=== PATIENT | male | born 1955 | race Caucasian/White ===

== ENCOUNTER 2016-06-16 01:36 | Inpatient (IN) | payer OTHER, MEDICAID ==
[2016-06-16] MEDS ORDERED: OLANZapine DISINTEGR 10 MG TAB PO ONE (02:06)
[2016-06-16 02:51] LABS: % IMMATURE GRANULYOCYTES 0.1 % (0.0-1.1); ABSOLUTE IMMATURE GRANULOCYTES 0.01 10^3/uL (0.00-0.10); ADD DIFF? NO; ADD MORPH? NO; ADD SCAN? NO; ATYPICAL LYMPHOCYTE FLAG 10 (0-99); FRAGMENT RBC FLAG 0 (0-99); HEMATOCRIT 42.1 % (40.0-51.0); HEMOGLOBIN 14.9 g/dL (13.7-17.5); LEFT SHIFT FLG 0 (0-99); LIPEMIA HEMOLYSIS FLAG 90 (0-99); MEAN CELL HEMOGLOBIN 32.7 pg (27.9-34.1); MEAN CELL HEMOGLOBIN CONCENTR. 35.4 g/dL (32.4-36.7); MEAN CELL VOLUME 92.5 fL (81.5-99.8); MEAN PLATELET VOLUME 9.5 fL (8.7-11.7); PLATELET CLUMPS FLAG 0 (0-99); PLATELET COUNT 190 10^3/uL (150-400); RED BLOOD CELL COUNT 4.55 10^6/uL (4.40-6.38); RED CELL DISTRIBUTION WIDTH 12.4 % (11.5-15.2)
[2016-06-16 03:29] LABS: ALANINE AMINOTRANSFERASE 29 IU/L (21-72); ALKALINE PHOSPHATASE 85 IU/L (38-126); ANION GAP 10 mEq/L (8-16); ASPARTATE AMINOTRANSFERASE 15 IU/L (17-59); BILIRUBIN,TOTAL 0.8 mg/dL (0.1-1.4); CALCIUM 9.3 mg/dL (8.5-10.4); CARBON DIOXIDE 26 mEq/l (22-31); CHLORIDE 108 mEq/L (97-110); CREATININE 0.7 mg/dL (0.7-1.3); ETHANOL SERUM < 10 mg/dL (0-10); GLOMERULAR FILTRATION RATE > 60; GLUCOSE 100 mg/dL (70-100); POTASSIUM 3.5 mEq/L (3.5-5.2); SODIUM 144 mEq/L (134-144); TOTAL PROTEIN 6.6 g/dL (6.3-8.2)
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
[2016-06-16] MEDS ORDERED: clonazePAM 1 MG TAB PO ONE (09:49)
[2016-06-16] MEDS ORDERED: ACETAMINOPHEN 325 MG TAB PO PRN ×2 (10:46→12:30)
[2016-06-16] MEDS ORDERED: NICOTINE POLACRILEX 2 MG GUM B PRN ×2 (10:46→12:30)
[2016-06-16] MEDS ORDERED: MAG HYDROX/AL HYDROX/SIMETH 30 ML UDCUP PO PRN ×2 (10:46→12:30)
[2016-06-16] MEDS ORDERED: MAGNESIUM HYDROXIDE 30 ML UDCUP PO PRN ×2 (10:46→12:30)
[2016-06-16] MEDS ORDERED: LORazepam 0.5 MG TAB PO PRN (10:46)
[2016-06-16] MEDS ORDERED: OLANZapine DISINTEGR 10 MG TAB PO PRN (10:46)
[2016-06-16] MEDS ORDERED: IBUPROFEN 600 MG TAB PO PRN (16:37)
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
[2016-06-16] MEDS ORDERED: OLANZapine 2.5 MG TAB PO SCH (21:00)
[2016-06-16] MEDS: DIVALPROEX ER 500 MG TAB PO SCH (21:47)
[2016-06-16] MEDS: OLANZapine DISINTEGR 10 MG TAB PO SCH (21:47)
[2016-06-17] MEDS ORDERED: ELETRIPTAN HBR 40 MG PO PRN (11:35)
--- NOTE | 2016-06-17 11:43 | SOAPPROG ---
SOAP Progress Note Assessment/Plan: Assessment: Pt is a 61 y/o Homeless male who has a long hx of Bipolar D/O who was put on an M1 for stating he was suicidal and homicidal. He then recanted being homicidal but stated he was suicidal "with a plan to hang myself like Matthew Toure." Pt was uncooperative with the initial eval by Dr Luis E joaquin 06/16/16 the day he came in and is requesting his "pain meds" although he cannot state who prescribes them. In the past when he was here in 2011 required days in seclusion and was D/C'd on Depakote 2500mm DAILY and Zyprexa 20 mg daily. The nurses reports he is refusing his psych meds but he states they were not offered. He told the wound care rn he is here "because it is cold outside." Plan:off meds x 2 weeks-now refusing-will encourage pt to take Depakote and Zyprexa pt will not give details on who is RXing his pain meds so will not order He will be encouraged to get out of bed and go to groups but now he is just lying in bed and being uncooperative 06/17/16 11:38 Subjective: "I need my pain meds!" Objective: Vital Signs Temp Pulse Resp BP Pulse Ox 36.4 C 76 18 129/89 H 96 06/16/16 13:22 06/16/16 13:22 06/16/16 10:00 06/16/16 13:22 06/16/16 13:22 Pt is A+O x4 angry at being woken up "I've already given all this information before" mood-irritable affect-broad thoughts-focused on pain meds no delusions expressed does not appear to be responding to internal stimuli reports SI "because it's cold outside" speech-loud and pressured memory-seems intact + med seeking for opiates no HI conc-poor I/J-limited - Time Spent With Patient Time Spent With Patient: 20' - Pending Discharge Pending Discharge Within 24 Hours: No Pending Discharge Within 48 Hours: No ICD10 Worksheet Patient Problems: Problems Problem Status Diagnosed Bipolar disorder Acute Rotator Cuff Repair Active
[2016-06-17] MEDS ORDERED: SUMAtriptan 50 MG TAB PO PRN (11:47)
[2016-06-17] MEDS: DIVALPROEX ER 500 MG TAB PO SCH (20:41)
[2016-06-17] MEDS: OLANZapine DISINTEGR 10 MG TAB PO SCH (20:42)
--- NOTE | 2016-06-18 11:55 | SOAPPROG ---
SOAP Progress Note Assessment/Plan: Assessment: Pt is a 61 y/o Homeless male who has a long hx of Bipolar D/O who was put on an M1 for stating he was suicidal and homicidal. He then recanted being homicidal but stated he was suicidal "with a plan to hang myself like Matthew Toure." Pt was uncooperative with the initial eval by Dr Luis E joaquin 06/16/16 the day he came in and is requesting his "pain meds" although he cannot state who prescribes them. In the past when he was here in 2011 required days in seclusion and was D/C'd on Depakote 2500mm DAILY and Zyprexa 20 mg daily. The nurses reports he is refusing his psych meds but he states they were not offered. He told the caretaker grounds he is here "because it is cold outside." Plan:off meds x 2 weeks-now refusing-will encourage pt to take Depakote and Zyprexa pt will not give details on who is RXing his pain meds so will not order Agrees to sign in vol will write order for pt to shave and take a bath he denies current SI 06/18/16 11:51 Subjective: "I came in here voluntarily. I want to take a bath and shave." Objective: Vital Signs Temp Pulse Resp BP Pulse Ox 36.4 C 76 18 129/89 H 96 06/16/16 13:22 06/16/16 13:22 06/16/16 10:00 06/16/16 13:22 06/16/16 13:22 Pt is A+O mood-irritable affect-broad denies S/H I denies A/V H thoughts-sarcastic, angry tone speech-pressured slept 8.5 hours good appetite and out of bed today conc-/memory-fair no XAVI no delusions I/J-limited - Time Spent With Patient Time Spent With Patient: 20' - Pending Discharge Pending Discharge Within 24 Hours: No Pending Discharge Within 48 Hours: No ICD10 Worksheet Patient Problems: Problems Problem Status Diagnosed Bipolar disorder Acute Rotator Cuff Repair Active
[2016-06-18] MEDS: DIVALPROEX ER 500 MG TAB PO SCH (16:40)
[2016-06-18] MEDS: LORazepam 0.5 MG TAB PO PRN (16:41)
[2016-06-18] MEDS: OLANZapine DISINTEGR 10 MG TAB PO SCH (16:41)
--- NOTE | 2016-06-18 17:55 | WOCRNPDOC ---
WOCRN Advanced Assessment Note - Skin Integrity Problem, Advanced Assess Right Lower Lateral Leg Surgical Wound/Incision Dressing Type: Allevyn Life Exudate Amount: None Site Measurement - Head-to-Toe Length X Width X Depth (cm): 3x1x0 Skin Integrity Problem Comment: Wound fully epithelized. No surrounding erythema , nor sign of infection. Area is tender but per patient report pain is decreasing. Cover for protection. Please reconsult wound care prn but at this time wound care doesn't need to round. May D/C dressing in 5 days and cover with bandaid prn. Felix HEWITT in room for care.
[2016-06-19] MEDS: VALPROIC ACID 250 MG/5 ML UDCUP PO SCH ×2 (11:14→21:59)
--- NOTE | 2016-06-19 11:30 | SOAPPROG ---
SOAP Progress Note Assessment/Plan: Assessment: Pt is a 61 y/o Homeless male who has a long hx of Bipolar D/O who was put on an M1 for stating he was suicidal and homicidal. He then recanted being homicidal but stated he was suicidal "with a plan to hang myself like Matthew Toure." Pt was uncooperative with the initial eval by Dr Luis E joaquin 06/16/16 the day he came in and is requesting his "pain meds" although he cannot state who prescribes them. In the past when he was here in 2011 required days in seclusion and was D/C'd on Depakote 2500mm DAILY and Zyprexa 20 mg daily. The nurses reports he is refusing his psych meds but he states they were not offered. He told the home health care worker he is here "because it is cold outside." Plan:off meds x 2 weeks-now taking Depakote and Zyprexa-requests syrup Depakote- pharmacist will order pt will not give details on who is RXing his pain meds so will not order Pt is vol pt has shave order and an order that he can take a bath as he denies current SI pt seen by wound care for leg wound 06/18/16 06/19/16 11:30 Subjective: requests flavored Depakote syrup Objective: Vital Signs Temp Pulse Resp BP Pulse Ox 36.3 C 92 14 114/88 H 98 06/19/16 06:00 06/19/16 06:00 06/19/16 06:00 06/19/16 06:00 06/19/16 06:00 Pt is A+O x4 mood-anxious affect-broad denies A/V H recent S/H I but denies now speech-pressured, loud thoughts-logical slept 12 hours conc/memory-impaired no XAVI no formal delusions I/J-limited but now accepting meds - Time Spent With Patient Time Spent With Patient: 20' - Pending Discharge Pending Discharge Within 24 Hours: No Pending Discharge Within 48 Hours: No ICD10 Worksheet Patient Problems: Problems Problem Status Diagnosed Bipolar disorder Acute Rotator Cuff Repair Active
[2016-06-19] MEDS: OLANZapine DISINTEGR 10 MG TAB PO SCH (21:58)
[2016-06-20] MEDS: VALPROIC ACID 250 MG/5 ML UDCUP PO SCH ×3 (08:17→20:42)
[2016-06-20] MEDS: clonazePAM 1 MG TAB PO PRN ×2 (08:17→16:23)
[2016-06-20] MEDS: OLANZapine DISINTEGR 10 MG TAB PO PRN (08:17)
--- NOTE | 2016-06-20 11:51 | SOAPPROG ---
SOAP Progress Note Assessment/Plan: Assessment: Pt is a 61 y/o Homeless male who has a long hx of Bipolar D/O who was put on an M1 for stating he was suicidal and homicidal. He then recanted being homicidal but stated he was suicidal "with a plan to hang myself like Matthew Mesfin." Pt was uncooperative with the initial eval by Dr Luis E joaquin 06/16/16 the day he came in and is requesting his "pain meds" although he cannot state who prescribes them. In the past when he was here in 2011 required days in seclusion and was D/C'd on Depakote 2500mm DAILY and Zyprexa 20 mg daily. The nurses reports he is refusing his psych meds but he states they were not offered. He told the day care teacher he is here "because it is cold outside." 06/20/16-pt gives long hx of Bipolar D/O and 10 years ago in a manic episode went into someone's house and took shampoo and was chased by police and charge with 3 felonies-now his neighbor had him arrested twice and a current charge in pending for felony menacing which is causing pt to have much difficulty in finding a place live due to his past and current legal problems-he just completed a course of chemo for Hep C for 6 months but has cirrhosis. Pt is concerned about taking Depakote but due to his hx of brittle nimco suggest no med changes at this time Plan:off meds x 2 weeks-now taking Depakote and Zyprexa-requests syrup Depakote- pharmacist will order Pt is vol pt has shave order and an order that he can take a bath as he denies current SI pt seen by wound care for leg wound 06/18/16 06/20/16 11:47 Subjective: pt anxious about housing and legal situation Objective: Vital Signs Temp Pulse Resp BP Pulse Ox 36.4 C 107 H 14 128/95 H 97 06/20/16 06:00 06/20/16 06:00 06/20/16 06:00 06/20/16 06:00 06/20/16 06:00 Pt is A+O x 4 mood-anxious affect-appr no S/H I thoughts-logical speech-sl pressured sleep/appetite-wnl no delusions no A/V H memory-intact conc-wnl no XAVI I/J-fair - Time Spent With Patient Time Spent With Patient: 25' - Pending Discharge Pending Discharge Within 24 Hours: No Pending Discharge Within 48 Hours: No ICD10 Worksheet Patient Problems: Problems Problem Status Diagnosed Bipolar disorder Acute Rotator Cuff Repair Active
[2016-06-20] MEDS: OLANZapine DISINTEGR 10 MG TAB PO SCH (20:42)
[2016-06-20] MEDS: LORazepam 0.5 MG TAB PO PRN (20:45)
[2016-06-21] MEDS: clonazePAM 1 MG TAB PO PRN ×2 (07:59→23:11)
[2016-06-21] MEDS: VALPROIC ACID 250 MG/5 ML UDCUP PO SCH ×3 (07:59→23:08)
--- NOTE | 2016-06-21 11:40 | SOAPPROG ---
SOAP Progress Note Assessment/Plan: Assessment: Pt is a 61 y/o Homeless male who has a long hx of Bipolar D/O who was put on an M1 for stating he was suicidal and homicidal. He then recanted being homicidal but stated he was suicidal "with a plan to hang myself like Matthew Touer." Pt was uncooperative with the initial eval by Dr Luis E joaquin 06/16/16 the day he came in and is requesting his "pain meds" although he cannot state who prescribes them. In the past when he was here in 2011 required days in seclusion and was D/C'd on Depakote 2500mm DAILY and Zyprexa 20 mg daily. The nurses reports he is refusing his psych meds but he states they were not offered. He told the early breastfeeding care specialist he is here "because it is cold outside." 06/20/16-pt gives long hx of Bipolar D/O and 10 years ago in a manic episode went into someone's house and took shampoo and was chased by police and charge with 3 felonies-now his neighbor had him arrested twice and a current charge in pending for felony menacing which is causing pt to have much difficulty in finding a place live due to his past and current legal problems-he just completed a course of chemo for Hep C for 6 months but has cirrhosis. Pt is concerned about taking Depakote but due to his hx of brittle nimco suggest no med changes at this time Plan:off meds x 2 weeks-now taking Depakote and Zyprexa-requests syrup Depakote- pharmacist will order Pt is vol pt has shave order and an order that he can take a bath as he denies current SI pt seen by wound care for leg wound 06/18/16 will check Depakote level and LFT's -pt with hx of Hep C with cirrhosis 06/21/16 11:39 Subjective: Still concerned about lack of housing on D/C Objective: Vital Signs Temp Pulse Resp BP Pulse Ox 36.8 C 77 14 124/88 H 98 06/21/16 06:00 06/21/16 06:00 06/21/16 06:00 06/21/16 06:00 06/21/16 06:00 Pt is A+O x4 mood-anxious affect-appr denies S/H I thoughts-logical sleep/appetite-wnl no A/V H no formal delusions thoughts-focused on neighbors, legal issues and housing speech-sl pressured conc-fair memory-intact no XAVI I/J-fair - Time Spent With Patient Time Spent With Patient: 20' - Pending Discharge Pending Discharge Within 24 Hours: No Pending Discharge Within 48 Hours: No ICD10 Worksheet Patient Problems: Problems Problem Status Diagnosed Bipolar disorder Acute Rotator Cuff Repair Active
[2016-06-21] MEDS: OLANZapine DISINTEGR 10 MG TAB PO SCH ×2 (21:27→23:08)
[2016-06-22] MEDS: clonazePAM 1 MG TAB PO PRN ×3 (05:35→23:44)
[2016-06-22] MEDS: VALPROIC ACID 250 MG/5 ML UDCUP PO SCH ×2 (10:49→20:30)
--- NOTE | 2016-06-22 10:51 | SOAPPROG ---
SOAP Progress Note Assessment/Plan: Assessment: Pt is a 61 y/o Homeless male who has a long hx of Bipolar D/O who was put on an M1 for stating he was suicidal and homicidal. He then recanted being homicidal but stated he was suicidal "with a plan to hang myself like Matthew Toure." Pt was uncooperative with the initial eval by Dr Luis E joaquin 06/16/16 the day he came in and is requesting his "pain meds" although he cannot state who prescribes them. In the past when he was here in 2011 required days in seclusion and was D/C'd on Depakote 2500mm DAILY and Zyprexa 20 mg daily. The nurses reports he is refusing his psych meds but he states they were not offered. He told the geriatric care manager he is here "because it is cold outside." 06/20/16-pt gives long hx of Bipolar D/O and 10 years ago in a manic episode went into someone's house and took shampoo and was chased by police and charge with 3 felonies-now his neighbor had him arrested twice and a current charge in pending for felony menacing which is causing pt to have much difficulty in finding a place live due to his past and current legal problems-he just completed a course of chemo for Hep C for 6 months but has cirrhosis. Pt is concerned about taking Depakote but due to his hx of brittle nimco suggest no med changes at this time 06/22/16-pt will refused Depakote only to take it later-has been denied housing in every place he's called and/or applied due to "rap sheet" and felonies. 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 taking Depakote and Zyprexa-likes the Depakote Syrup Pt is vol pt has shave order and an order that he can take a bath as he denies current SI pt seen by wound care for leg wound 06/18/16 will check Depakote level and LFT's 06/25/16-pt with hx of Hep C with cirrhosis 06/22/16 10:48 Subjective: Pt tearful and anxious about not being able to find a place to live new legal charges Objective: Vital Signs Temp Pulse Resp BP Pulse Ox 36.7 C 75 16 144/91 H 98 06/22/16 06:19 06/22/16 06:19 06/22/16 06:19 06/22/16 06:19 06/22/16 06:19 Pt is A+O x4 mood-depressed affect-appr thoughts-logical sleep/appetite-wnl no A/V H no S/H I but recent SI and HI speech-sl pressured no delusions memory/conc-good no XAVI I/J-fair - Time Spent With Patient Time Spent With Patient: 20' - Pending Discharge Pending Discharge Within 24 Hours: No Pending Discharge Within 48 Hours: No ICD10 Worksheet Patient Problems: Problems Problem Status Diagnosed Bipolar disorder Acute Rotator Cuff Repair Active
[2016-06-22] MEDS: OLANZapine DISINTEGR 10 MG TAB PO SCH (20:30)
[2016-06-22] MEDS: LORazepam 0.5 MG TAB PO PRN (20:35)
[2016-06-22] MEDS: OLANZapine DISINTEGR 10 MG TAB PO PRN (23:44)
[2016-06-23] MEDS: VALPROIC ACID 250 MG/5 ML UDCUP PO SCH ×2 (09:28→21:01)
--- NOTE | 2016-06-23 10:40 | SOAPPROG ---
SOAP Progress Note Assessment/Plan: Assessment: Pt is a 61 y/o Homeless male who has a long hx of Bipolar D/O who was put on an M1 for stating he was suicidal and homicidal. He then recanted being homicidal but stated he was suicidal "with a plan to hang myself like Matthew Toure." Pt was uncooperative with the initial eval by Dr Luis E joaquin 06/16/16 the day he came in and is requesting his "pain meds" although he cannot state who prescribes them. In the past when he was here in 2011 required days in seclusion and was D/C'd on Depakote 2500mm DAILY and Zyprexa 20 mg daily. The nurses reports he is refusing his psych meds but he states they were not offered. He told the client care consultant he is here "because it is cold outside." 06/20/16-pt gives long hx of Bipolar D/O and 10 years ago in a manic episode went into someone's house and took shampoo and was chased by police and charge with 3 felonies-now his neighbor had him arrested twice and a current charge in pending for felony menacing which is causing pt to have much difficulty in finding a place live due to his past and current legal problems-he just completed a course of chemo for Hep C for 6 months but has cirrhosis. Pt is concerned about taking Depakote but due to his hx of brittle nimco suggest no med changes at this time 06/22/16-pt will refused Depakote only to take it later-has been denied housing in every place he's called and/or applied due to "rap sheet" and felonies. 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-likes the Depakote Syrup Pt is vol pt has shave order and an order that he can take a bath as he denies current SI pt seen by wound care for leg wound 06/18/16 will check Depakote level and LFT's 06/25/16-pt with hx of Hep C with cirrhosis pt asking to leave-is vol but is threatening to kill neighbors will put pt on an M1 06/23/16 10:37 Subjective: "I want to go home!" Objective: Vital Signs Temp Pulse Resp BP Pulse Ox 36.4 C 84 16 137/90 H 99 06/23/16 06:28 06/23/16 06:28 06/23/16 06:28 06/23/16 06:28 06/23/16 06:28 Pt is A+O X4 laying in room with blanket covering his head mood-angry/labile affect-broad thoughts-focusing on leaving -angry at neighbors and was heard on phone threatening to kill them +HI no A/V H speech-loud, pressured sleep/appetite-wnl memory-intact conc-poor no XAVI no SI I/J-limited - Time Spent With Patient Time Spent With Patient: 20' - Pending Discharge Pending Discharge Within 24 Hours: No Pending Discharge Within 48 Hours: No ICD10 Worksheet Patient Problems: Problems Problem Status Diagnosed Bipolar disorder Acute Rotator Cuff Repair Active
[2016-06-23] MEDS: clonazePAM 1 MG TAB PO PRN (14:16)
[2016-06-23] MEDS: OLANZapine DISINTEGR 10 MG TAB PO SCH (21:01)
[2016-06-24] MEDS: VALPROIC ACID 250 MG/5 ML UDCUP PO SCH ×3 (02:51→18:31)
[2016-06-24] MEDS: OLANZapine DISINTEGR 10 MG TAB PO SCH ×2 (02:51→21:21)
[2016-06-24] MEDS: clonazePAM 1 MG TAB PO PRN ×2 (02:52→14:20)
[2016-06-25] MEDS: clonazePAM 1 MG TAB PO PRN ×2 (04:12→10:38)
[2016-06-25 09:58] LABS: ALANINE AMINOTRANSFERASE 24 IU/L (21-72); ALBUMIN 3.9 g/dL (3.5-5.0); ALKALINE PHOSPHATASE 86 IU/L (38-126); ASPARTATE AMINOTRANSFERASE 18 IU/L (17-59); BILIRUBIN,TOTAL 0.6 mg/dL (0.1-1.4); BILIRUBIN-CONJUGATED 0.3 mg/dL (0.0-0.5); BILIRUBIN-UNCONJUGATED 0.3 mg/dL (0.0-1.1); TOTAL PROTEIN 6.6 g/dL (6.3-8.2)
[2016-06-25] MEDS: VALPROIC ACID 250 MG/5 ML UDCUP PO SCH ×2 (10:38→23:10)
--- NOTE | 2016-06-25 12:33 | SOAPPROG ---
SOAP Progress Note Assessment/Plan: Assessment: Plan: 06/25/16 12:34 Still quite psychotic. Made threats of homicide yesterday. Will maintain M-1, CCM. Likely titrate VPA after level tomorrow. Subjective: LATE ENTRY FOR 06/24/16 Pt seen, discussed with staff, chart reviewed. He is not interested in speaking with me "because it's the [facility] psychiatrists who placed me on this long -term certification yesterday." I attempted to explain to him that he is only on an M-1 hold. He remains agitated, paranoid, angry at times. Compliant with meds. Objective: Vital Signs Temp Pulse Resp BP Pulse Ox 36.7 C 87 14 138/93 H 95 06/25/16 06:03 06/25/16 06:03 06/25/16 06:03 06/25/16 06:03 06/25/16 06:03 MSE: Hostile, agitated. Mood is "bad." TP perseverative, tangential. TC reveals paranoia, IOR's. - Time Spent With Patient Time Spent With Patient: 15" - Pending Discharge Pending Discharge Within 24 Hours: No Pending Discharge Within 48 Hours: No ICD10 Worksheet Patient Problems: Problems Problem Status Diagnosed Bipolar disorder Acute Rotator Cuff Repair Active
--- NOTE | 2016-06-25 12:38 | SOAPPROG ---
SOAP Progress Note Assessment/Plan: Assessment: Plan: 06/25/16 12:34 Still quite psychotic. Made threats of homicide yesterday. Will maintain M-1, CCM. Likely titrate VPA after level tomorrow. 06/25/16 12:38 No interval change. CCM. Will titrate VPA towards a therapeutic dose. Subjective: Pt seen, discussed with staff. Remains disinterested in talking with me. Offers no c/o's. Compliant with meds, though it is unclear whether he will take a higher dose of VPA. Objective: Vital Signs Temp Pulse Resp BP Pulse Ox 36.7 C 87 14 138/93 H 95 06/25/16 06:03 06/25/16 06:03 06/25/16 06:03 06/25/16 06:03 06/25/16 06:03 - Time Spent With Patient Time Spent With Patient: 15" - Pending Discharge Pending Discharge Within 24 Hours: No Pending Discharge Within 48 Hours: No ICD10 Worksheet Patient Problems: Problems Problem Status Diagnosed Bipolar disorder Acute Rotator Cuff Repair Active
[2016-06-25] MEDS: SUMAtriptan 25 MG TAB PO PRN (16:06)
[2016-06-25] MEDS: OLANZapine DISINTEGR 10 MG TAB PO SCH (23:09)
[2016-06-26] MEDS: clonazePAM 1 MG TAB PO PRN ×3 (00:03→16:05)
[2016-06-26] MEDS: VALPROIC ACID 250 MG/5 ML UDCUP PO SCH ×3 (00:05→20:28)
--- NOTE | 2016-06-26 11:20 | SOAPPROG ---
SOAP Progress Note Assessment/Plan: Assessment: Patient with bipolar disorder type I with improved mood on Depakote and Zyprexa. He denies SI/HI. He was irritable with some staff this AM, but he blames it on learning he was about to lose all his things or have to pay for them to be moved. He seems to have continued mood instability; although, he was relatively calm and apologetic during our interaction. He appears to have a plan for his post hospital stay. Plan: Will continue medications and treatment. Patient to sign in as a voluntary patient. Will continue to monitor mood due to some residual irritability. Continue discharge planning. 06/26/16 11:16 06/26/16 11:32 Subjective: He denies SI/HI at this time. He reports he was told by his treatment providers to lie if he felt he needed hospitalization, so he did. He reports he got upset with a women about 30 minutes before this script writer appeared because the woman made him angry. He denies any knowledge of being irritated with the healthcare network consultant this AM. He points to his recent six month course of chemotherapy as proof that he wants to live. He reports a continued fear of returning to his apartment and of being kept here for months. He plans to stay away from his current apartment, but he does have to get rid of his furniture. He has enlisted the help of friends to complete this task. He has plans to stay with friends for a short period if he can't get into a new section 8 apartment in the near term. He has asked for a 60 day extension to find housing. He also asked for a continuation on his court case. Objective: Vital Signs Temp Pulse Resp BP Pulse Ox 36.2 C 90 16 141/100 H 96 06/25/16 23:58 06/25/16 23:58 06/25/16 23:58 06/25/16 23:58 06/25/16 23:58 male of average build and above average height, sitting on the bed. Relaxed, good eye contact. Booming voice. Mood- "Afraid." Affect- Initially irritated, but quickly calmed down. Thought Process- linear and goal directed. He did contradict himself on a few occasions. Thought Content- No SI/HI. No AH/ VH. Insight - good. Judgment- Fair. - Time Spent With Patient Time Spent With Patient: 30 minutes - Pending Discharge Pending Discharge Within 24 Hours: Yes Pending Discharge Within 48 Hours: No Pending Discharge Date: 06/27/16 Pending Discharge Time: 11:00 ICD10 Worksheet Patient Problems: Problems Problem Status Diagnosed Bipolar disorder Acute Rotator Cuff Repair Active
[2016-06-26] MEDS: SUMAtriptan 25 MG TAB PO PRN (14:32)
[2016-06-26] MEDS: LORazepam 0.5 MG TAB PO PRN (20:34)
[2016-06-26] MEDS: OLANZapine DISINTEGR 10 MG TAB PO SCH (21:16)
[2016-06-27 05:15] VITALS: BP 141/87; PULSE 98; RESP 14; TEMP 97.3; O2SAT 99
[2016-06-27] MEDS: clonazePAM 1 MG TAB PO PRN (06:49)
[2016-06-27] MEDS: VALPROIC ACID 250 MG/5 ML UDCUP PO SCH (10:30)
== END 2016-06-27 11:50 | disposition home or self-care (01) | DRG 885 ==
LOC: BBEH 12:15
PROVIDERS: ADMIT Psychiatry & Neurology Psychiatry; ATTEND Psychiatry & Neurology Psychiatry
DX: F31.62 Bipolar disorder, current episode mixed, moderate (principal); F12.90 Cannabis use, unspecified, uncomplicated; Z59.0 Homelessness; G89.29 Other chronic pain; Z87.442 Personal history of urinary calculi
CPT/HCPCS: G0477; G0480

== ENCOUNTER 2016-08-26 16:24 | Emergency (ER) | payer OTHER, MEDICAID | END 2016-08-26 16:39 | disposition left against medical advice (07) | LOC: CED 16:24 | DX: K04.7 Periapical abscess without sinus (principal); Z53.21 Procedure and treatment not carried out due to patient leaving prior to being seen by health care provider ==

== ENCOUNTER 2017-06-23 23:48 | Emergency (ER) | payer OTHER, MEDICAID ==
[2017-06-23 23:54] VITALS: TEMP 98.4; O2SAT 95
--- NOTE | 2017-06-24 00:11 | EDPHY ---
H & P Time Seen by Provider: 06/24/17 00:00 HPI/ROS: CHIEF COMPLAINT: Right foot injury HISTORY OF PRESENT ILLNESS: 62-year-old male presents to the emergency department by private vehicle with injury to his right foot. The patient states that he was moving out of his apartment and slipped on some ice on some stairs and fell injuring his right foot. He thinks that he may have hit his head. He did not lose consciousness. He denies a headache. Denies neck or back pain. Denies chest pain or difficulty breathing. Denies numbness or tingling in his toes. Denies injury to his upper extremities. Denies pain in his right ankle, right knee or hip. Denies symptoms in the left lower extremity. REVIEW OF SYSTEMS: Constitutional: No fever, no chills. Eyes: No double or blurry vision. ENT: No sore throat. Respiratory: No cough, no shortness of breath. Cardiac: No chest pain. Gastrointestinal: No abdominal pain, vomiting or diarrhea. Genitourinary: No dysuria. Musculoskeletal: No neck or back pain. Skin: No rashes. Neurological: No headache. Past Medical/Surgical History: Bipolar, kidney stones Social History: Single, lives in [place] Smoking Status: Never smoked Physical Exam: General Appearance: Alert, no distress. No visible signs of trauma to his head. Mentating normally and answering questions appropriately. Eyes: Pupils equal and round. Extraocular motions are all intact. ENT: Mouth: Mucous membranes moist. No dental injury or malocclusion. Respiratory: No wheezing, rhonchi, or rales, lungs are clear to auscultation. Cardiovascular: Regular rate and rhythm. Gastrointestinal: Abdomen is soft and nontender, no masses, no rebound or guarding, bowel sounds normal. Neurological: Alert and oriented x 3, cranial nerves II through XII grossly intact Skin: Warm and dry, no rashes. Musculoskeletal: Nontender to palpate along the cervical, thoracic or lumbar spine. Neck is supple. Extremities: Full range of motion and no peripheral edema. Reproducible pain with palpation to the dorsal lateral aspect of his right foot. Nontender to palpate over the right ankle. Right ankle appears stable. Nontender to palpate in the right calf. Achilles tendon is intact. Full range of motion of his right knee. He has an antalgic gait. Full range of motion of the left lower extremity and upper extremities bilaterally. Psychiatric: Patient is oriented X 3, there is no agitation. Constitutional: Initial Vital Signs Temperature (C) 36.9 C 06/23/17 23:50 Heart Rate 97 06/23/17 23:50 Respiratory Rate 16 06/23/17 23:50 Blood Pressure 136/106 H 06/23/17 23:50 O2 Sat (%) 95 06/23/17 23:50 O2 Delivery Mode Room Air Allergies/Adverse Reactions: No Known Allergies Allergy (Verified 06/16/16 01:40) Home Medications: Medication Instructions Recorded Eletriptan HBr [Relpax] 40 mg PO DAILY PRN #30 tablet 06/27/16 OLANZapine [Zyprexa] 10 mg PO HS #30 tablet 06/27/16 Valproic Acid [Depakene 50MG/ML 750 mg PO BID #1 btl 06/27/16 Oral Liquid (*)] clonazePAM [klonoPIN (*)] 1 mg PO Q6HRS PRN #14 tab 06/27/16 Medical Decision Making - Diagnostics Imaging Results: Right foot xray reveals no fx. This is reviewed by myself and the PAC system. Radiology interpretation to follow. Imaging: I viewed and interpreted images myself Procedures: Patient was placed in a postop shoe and examined post application in good placement with normal BAKE ROOM WORKER. ED Course/Re-evaluation: 62-year-old male presents to the emergency department after he fell injuring his right foot. X-rays reveal no fractures. He was placed in a postop shoe and given orthopedic referral. There is no evidence of trauma to his head. I do not think additional imaging is necessary. Differential Diagnosis: Including but not limited to fracture, dislocation, contusion, sprain Departure - Departure Disposition: Home, Routine, Self-Care Clinical Impression: Right foot sprain Qualifiers: Encounter type: initial encounter Qualified Code(s): S93.601A - Unspecified sprain of right foot, initial encounter Condition: Good Instructions: Foot Sprain (ED) Additional Instructions: Postop shoe for comfort and support. Weightbear as tolerated. Ibuprofen 600 mg every 8 hr as needed for pain. Referrals: Lyndsey Dominguez MD [Medical Doctor] - 5-7 days, call for appt. (Orthopedic surgeon on-call)
[2017-06-24 01:07] VITALS: BP 134/80; PULSE 80; RESP 19
== END 2017-06-24 01:07 | disposition home or self-care (01) ==
DX: S93.601A Unspecified sprain of right foot, initial encounter (principal); W00.0XXA Fall on same level due to ice and snow, initial encounter; Y92.039 Unspecified place in apartment as the place of occurrence of the external cause; Y93.89 Activity, other specified

== ENCOUNTER 2017-06-24 21:33 | Inpatient (IN) | payer OTHER, MEDICAID ==
[2017-06-24] MEDS ORDERED: OLANZapine DISINTEGR 10 MG TAB PO ONE (22:09)
[2017-06-24] MEDS ORDERED: DIVALPROEX NA 250 MG TAB PO ONE (22:23)
[2017-06-24 22:28] LABS: PLATELET COUNT 208 10^3/uL (150-400)
--- NOTE | 2017-06-24 23:22 | EDPHY ---
H & P Smoking Status: Never smoked Time Seen by Provider: 06/24/17 21:42 HPI/ROS: CHIEF COMPLAINT: M1 hold HISTORY OF PRESENT ILLNESS: 62-year-old male presents to the emergency department on M1 hold. The patient has a history of bipolar and apparently was unable to open his medications today. Patient does not feel suicidal homicidal. He denies auditory or visual hallucinations. The patient is very upset because he is losing his housing and does not have any place to stay. Currently has no physical complaints. No fever. No cough. No urinary symptoms. He does not the abusing drugs or drink alcohol. REVIEW OF SYSTEMS: Constitutional: No fever, no chills. Eyes: No double or blurry vision. ENT: No sore throat. Respiratory: No cough, no shortness of breath. Cardiac: No chest pain. Gastrointestinal: No abdominal pain, vomiting or diarrhea. Genitourinary: No dysuria. Musculoskeletal: No neck or back pain. Skin: No rashes. Neurological: No headache. (Renetta Curry) Past Medical/Surgical History: Bipolar, kidney stones, hepatitis-C (Renetta Curry) Social History: Single (Renetta Curry) Physical Exam: General Appearance: Alert, no distress. Tearful. Eyes: Pupils equal and round. Extraocular motions are all intact. ENT: Mouth: Mucous membranes moist. Respiratory: No wheezing, rhonchi, or rales, lungs are clear to auscultation. Cardiovascular: Regular rate and rhythm. Gastrointestinal: Abdomen is soft and nontender, no masses, no rebound or guarding, bowel sounds normal. Neurological: Alert and oriented x 3, cranial nerves II through XII grossly intact Skin: Warm and dry, no rashes. Musculoskeletal: Nontender to palpate along the cervical, thoracic or lumbar spine. Neck is supple. Extremities: Full range of motion and no peripheral edema. Psychiatric: Patient is oriented X 3, there is no agitation. (Renetta Curry) Constitutional: Initial Vital Signs Temperature (C) 37 C 06/24/17 21:43 Heart Rate 90 06/24/17 21:43 Respiratory Rate 16 06/24/17 21:43 Blood Pressure 145/105 H 06/24/17 21:43 O2 Sat (%) 99 06/24/17 21:43 O2 Delivery Mode Room Air Allergies/Adverse Reactions: No Known Allergies Allergy (Verified 06/16/16 01:40) Home Medications: Medication Instructions Recorded OLANZapine [Zyprexa] 10 mg PO HS #30 tablet 06/27/16 Divalproex ER [Depakote ER 500 MG 1,000 mg PO DAILY 06/25/17 (*)] Divalproex ER [Depakote ER 500 MG 1,500 mg PO HS 06/25/17 (*)] Ranitidine HCl [Zantac] 150 mg PO BID 06/25/17 clonazePAM [klonoPIN (*)] 1 mg PO TID PRN 06/25/17 oxyCODONE IR [Oxycodone Ir (*)] 10 mg PO Q6 PRN 06/25/17 Medical Decision Making ED Course/Re-evaluation: 62-year-old male presents to the emergency department on M1 hold. Patient was given 750 mg Depakote and 10 mg Zyprexa The case was discussed with Dr. Robbins, secondary supervising physician. Patient elevated white blood cell count of over 20,000. The patient tells me he has no respiratory distress or respiratory complaints. No urinary symptoms. The patient had a chest x-ray which revealed left lower lobe pneumonia. He will be treated with oral doxycycline. Was given 100 mg p.o. in the emergency department. Patient is awaiting mental health evaluation. (Renetta Curry) Differential Diagnosis: Depression including functional and major depression, situational depression, medication side effect, drugs and alcohol abuse. (Renetta Curry) Other Provider: 06/24/17 2340 care assumed by me from JETT Curry pending medical clearance and mental health evaluation. Patient has a significant leukocytosis but no fever. Will continue to look for possible source. chest XR positive for LLL infiltrate. No other obvious source of infection. He has been started on doxycycline. Patient will be mentally Health evaluated the area 0[address] patient signed out to Dr. Gonzalez pending mental health evaluation. No issues with this patient overnight. (Colt Robbins) 1500- Patient signed out to Dr. Beal pending placement. (Zachariah Gonzalez) I assumed care of the patient at shift change. Update at 4:20 p.m.. The patient has been accepted for inpatient psychiatric admission at [facility] by Dr. Troy Danielle. I have filled out the EMTALA transfer form. (Dinesh Beal) - Data Points Laboratory Results: Laboratory Results 06/24/17 21:38 06/24/17 21:38 Medications Given: Divalproex Sodium (Depakote) 750 mg PO BID KARLEY Stop: 12/22/17 08:59 Last Admin: 06/25/17 09:39 Dose: 750 mg Discontinued Medications Divalproex Sodium (Depakote) 750 mg PO EDNOW ONE Stop: 06/24/17 22:24 Last Admin: 06/24/17 22:41 Dose: 750 mg Doxycycline Hyclate (Doxycycline Hyclate) 100 mg PO EDNOW ONE PRN Reason: Protocol Stop: 06/24/17 23:59 Last Admin: 06/25/17 00:16 Dose: 100 mg Doxycycline Hyclate (Doxycycline Hyclate) 100 mg PO EDNOW ONE PRN Reason: Protocol Stop: 06/25/17 09:30 Last Admin: 06/25/17 09:38 Dose: 100 mg Lorazepam (Ativan) 1 mg PO EDNOW ONE Stop: 06/25/17 08:50 Last Admin: 06/25/17 08:57 Dose: 1 mg Olanzapine (Zyprexa Zydis) 10 mg PO EDNOW ONE Stop: 06/24/17 22:10 Last Admin: 06/24/17 22:12 Dose: 10 mg Departure - Departure Disposition: [facility] IP Clinical Impression: Bipolar 1 disorder Pneumonia Qualifiers: Pneumonia type: due to unspecified organism Laterality: left Lung location: lower lobe of lung Qualified Code(s): J18.1 - Lobar pneumonia, unspecified organism Condition: Good Referrals: Daryl Navarro MD [Primary Care Provider] - As per Instructions
[2017-06-24] MEDS ORDERED: DOXYCYCLINE HYCLATE 100 MG CAP/TAB PO ONE (23:58)
[2017-06-25] MEDS ORDERED: LORazepam 1 MG TAB PO ONE (08:49)
[2017-06-25] MEDS ORDERED: DIVALPROEX NA 250 MG TAB PO SCH (09:00)
[2017-06-25] MEDS ORDERED: DOXYCYCLINE HYCLATE 100 MG CAP/TAB PO ONE (09:29)
[2017-06-25] MEDS ORDERED: clonazePAM 1 MG TAB PO PRN (20:16)
[2017-06-25] MEDS ORDERED: OLANZapine 10 MG TAB PO SCH (21:00)
[2017-06-25] MEDS: DIVALPROEX ER 500 MG TAB PO SCH (21:24)
[2017-06-25] MEDS: FAMOTIDINE 20 MG TAB PO SCH (21:24)
[2017-06-26] MEDS: FAMOTIDINE 20 MG TAB PO SCH ×2 (08:43→21:12)
[2017-06-26] MEDS: DIVALPROEX ER 500 MG TAB PO SCH ×2 (08:43→21:11)
[2017-06-26] MEDS: oxyCODONE IR 5 MG TAB PO PRN ×3 (11:42→23:45)
[2017-06-26] MEDS: PROPRANOLOL HCL 10 MG TAB PO SCH ×3 (11:46→21:11)
[2017-06-26] MEDS: clonazePAM 1 MG TAB PO SCH ×2 (11:47→21:12)
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
[2017-06-26] MEDS ORDERED: SENNOSIDES 1 TAB PO PRN (14:52)
--- NOTE | 2017-06-26 16:04 | BCON ---
[f rep st] BEHAVIORAL HEALTH CONSULTATION INTERNAL MEDICINE CONSULTATION DATE OF CONSULTATION: 06/26/2017 REFERRING PHYSICIAN: Troy Danielle MD REASON FOR REFERRAL: Medical clearance for inpatient behavioral health stay. HISTORY OF PRESENT ILLNESS: This patient came to the emergency department 2 days ago. He was brought on an M1 hold. Per the emergency department report, he was upset because he was losing his housing and had no place to stay. He had been seen earlier the day before with an injury to his right foot. He was moving out of an apartment and slipped on the ice. He was diagnosed with a sprain of the ankle. While he was in the emergency department on a more recent visit, a chest x-ray was obtained, the reason is unclear; however, he did have an elevated white count, so it might have been evaluation of the elevated white count. The radiologist noted a possible infiltrate versus atelectasis, and he was treated with antibiotics. He currently reports that he has a cough with clear sputum. He denies fevers or chills. He denies sweats at night. He denies difficulty breathing. He reports he has constipation. He describes multiple previous orthopedic injuries and need for opiate medications, and he reports that the dose has been reduced. He said he recently spent 33 days at [facility], where opiates were discontinued and he reports he went through some withdrawal symptoms at that time with chills and sweats, but he has not had chills and sweats subsequently. PAST MEDICAL HISTORY: 1. Multiple orthopedic injuries. 2. Kidney stones. 3. Bipolar disorder. 4. Right lower leg abscess. 5. Asthma. PAST SURGICAL HISTORY: He has had bilateral shoulder surgery, repair of a fractured left humerus, bilateral knee surgeries, and right foot surgery. MEDICATIONS: Prior to admission: 1. Ranitidine 150 mg p.o. twice daily. 2. Oxycodone IR 10 mg p.o. q.6 hours p.r.n. 3. Clonazepam 1 mg p.o. three times daily p.r.n. 4. Olanzapine 10 mg p.o. at bedtime. 5. Divalproex 1000 mg daily and 1500 mg at bedtime. SOCIAL HISTORY: He had been living in an apartment but apparently is currently homeless. 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 He is a nonsmoker and nondrinker. FAMILY HISTORY: Noncontributory. REVIEW OF SYSTEMS: He reports a sensation of hearing loss in his left ear. He has had some weight gain documented in the chart since a year ago, when he was previously at the Inpatient Behavioral Health Unit. Otherwise, other than as in HPI, a 10-point review of systems was negative. PHYSICAL EXAM: VITAL SIGNS: Blood pressure is 160/100, heart rate is 93, respiratory rate is 14, oxygen saturation is 95% on room air. Temperature is 36.7 degrees centigrade. His weight is 84.8 kg for a body mass index of 24.7. GENERAL: This is a well-nourished, well-developed man, cooperative, and in no acute distress. HEENT: Extraocular movements are intact. Pupils are equal, round, reactive to light. Mucous membranes are moist. Dentition is in good condition. There is no posterior oropharyngeal mucus and no oral mucosal lesions. Tympanic membranes and external auditory canals are normal bilaterally with no erythema and no bulging. NECK: Supple. HEART: There is a regular rate and rhythm with no murmurs, rubs, or gallops. LUNGS: Clear to auscultation bilaterally. There are no wheezes, rhonchi, or crackles. ABDOMEN : Soft, nontender, nondistended with normoactive bowel sounds. EXTREMITIES: There is no cyanosis, clubbing, or edema. Radial and dorsalis pedis pulses are 2+ bilaterally. NEUROLOGIC: He is alert and oriented x3. He has pressured speech, flight of ideas and loose associations. Cranial nerves 2-12 are grossly intact. Hearing is intact to finger rub bilaterally. There is no focal weakness. Sensation is intact to light touch. Gait is within normal limits. He has rhythmic tremor, especially of the right lower extremity. LABORATORY STUDIES: CBC showed an elevated white blood cell count at 21.35. It was predominantly neutrophils, but also elevated monocytes, and there was no left shift. Serum chemistry revealed normal renal function and electrolytes. Glucose was elevated at 115, but it may not have been fasting as it was drawn in the evening. TSH was normal at 0.955. Urinalysis showed 1+ blood, and urinalysis was otherwise within normal limits. He had a PCR done for influenza A and B, and these were negative. Toxicology screen in the urine was non- negative for marijuana and was otherwise negative for substances of abuse. ASSESSMENT/RECOMMENDATIONS: 1. Mental health issues, pending further evaluation and management per Psychiatry and the mental health team. 2. Leukocytosis. It seems doubtful to me that he has pneumonia. It was certainly not a definitive finding on the chest x-ray, and he is showing no other signs or symptoms of pneumonia. I will not continue antibiotics, and I will repeat a CBC with differential in the morning. If he continues to have a markedly elevated white blood cell count, then further evaluation is indicated. 3. Asthma appears to be quiescent. I will prescribe p.r.n. albuterol inhaler. 4. Chronic pain. He has been prescribed oxycodone 10 mg q.6 hours p.r.n. Six hours is probably too long in duration if pain is being treated; would expect return of pain after 3-4 hours. He can be monitored, it could be that his issue is more chronic opioid dependency rather than chronic pain. 5. Left hearing loss, subjective. Exam is normal. He can have evaluation by Audiology or ENT after his discharge. 6. Constipation, likely related to opiate use. I have prescribed p.r.n. senna twice daily and scheduled MiraLAX. 7. Tremor of the lower extremities. He reports history of tremor in his family including his sister. This could be a variant of essential tremor, which can have a familial component. It is conceivable that he has extrapyramidal symptoms from psychiatric medications, but his presentation otherwise is not consistent with extrapyramidal symptoms. He reports that he has been started on propranolol per Dr. Danielle, psychiatrist, and he should be observed for improvement. If it is essential tremor, it is likely to be worse with stress or poor sleep, and likely to improve as his psychiatric picture stabilizes. 8. Hypertension and markedly elevated blood pressure. He has been started on propranolol. Propranolol would not be first-line. We will have a low threshold to start a first-line medication including possibly an angiotensin receptor lopez, a diuretic, or an angiotensin-converting enzyme inhibitor. Recommend serial blood pressure determinations, and will follow and start or adjust medications if appropriate. I see no medical contraindications to this patient's continued stay on the inpatient behavioral health unit or to any psychiatric medications or procedures. Thank you very much for including me in the care of this patient. Please do not hesitate to contact me or the hospitalist service should there be need for further medical evaluation. /[id number]/MODL MTDD
[2017-06-26] MEDS ORDERED: OLANZapine 2.5 MG TAB PO SCH (21:00)
[2017-06-27] MEDS: FAMOTIDINE 20 MG TAB PO SCH ×2 (08:07→20:23)
[2017-06-27] MEDS: oxyCODONE IR 5 MG TAB PO PRN ×3 (08:08→20:23)
[2017-06-27] MEDS: DIVALPROEX ER 500 MG TAB PO SCH (08:08)
[2017-06-27] MEDS: PROPRANOLOL HCL 10 MG TAB PO SCH ×3 (08:09→20:25)
[2017-06-27] MEDS: clonazePAM 1 MG TAB PO SCH ×3 (08:10→20:26)
[2017-06-27] MEDS: POLYETHYLENE GLYCOL 3350 17 GM PKT PO SCH (08:10)
[2017-06-27 09:09] LABS: PLATELET COUNT 224 10^3/uL (150-400)
--- NOTE | 2017-06-27 14:13 | SOAPPROG ---
SOAP Progress Note Assessment/Plan: Assessment: Plan: 06/27/17 14:16 Bipolar D/o: remains manic. CCM. Subjective: Pt seen, discussed with staff. Reports feeling "pretty nervous." Continues to perseverate on worries about housing and money. He has exhibited several episodes of increased agitation, but no aggressive behaviors. Compliant with all meds. Objective: Vital Signs Temp Pulse Resp BP Pulse Ox 36.6 C 79 18 130/94 H 94 06/27/17 08:00 06/27/17 08:00 06/27/17 08:00 06/27/17 08:00 06/27/17 08:00 Laboratory Results 06/27/17 06:25 MSE: Pressured, clingy, struggles to terminate conversation. Affect is constricted, anxious. Mood is "bad." TP tangential. TC reveals continued paranoia. - Time Spent With Patient Time Spent With Patient: 15" ICD10 Worksheet Patient Problems: Problems Problem Status Onset Bipolar 1 disorder Acute Pneumonia Acute Rotator Cuff Repair Active Bipolar disorder Acute
[2017-06-27] MEDS: OLANZapine DISINTEGR 10 MG TAB PO SCH (20:23)
[2017-06-27] MEDS: VALPROIC ACID 250 MG/5 ML UDCUP PO SCH (20:24)
[2017-06-28] MEDS: VALPROIC ACID 250 MG/5 ML UDCUP PO SCH ×2 (09:49→18:16)
[2017-06-28] MEDS: PROPRANOLOL HCL 10 MG TAB PO SCH ×3 (09:49→19:59)
[2017-06-28] MEDS: clonazePAM 1 MG TAB PO SCH ×3 (09:50→19:59)
[2017-06-28] MEDS: FAMOTIDINE 20 MG TAB PO SCH ×2 (09:50→18:15)
[2017-06-28] MEDS: OLANZapine DISINTEGR 10 MG TAB PO PRN (09:58)
[2017-06-28] MEDS: oxyCODONE IR 5 MG TAB PO PRN (09:58)
[2017-06-28] MEDS: POLYETHYLENE GLYCOL 3350 17 GM PKT PO SCH (10:54)
--- NOTE | 2017-06-28 12:15 | SOAPPROG ---
SOAP Progress Note Assessment/Plan: Assessment: Plan: 06/27/17 14:16 Bipolar D/o: remains manic. CCM. 06/28/17 12:16 Bipolar D/o: Remains manic though improving. CCM. Subjective: Pt seen, discussed with staff. Reports feeling "fine, totally nl." Remains very pressured, intrusive, hyperactive. Rambling about need to go home, meds, other topics. Compliant with treatment inc: meds here. Slept 8 hours. Objective: Vital Signs Temp Pulse Resp BP Pulse Ox 36.3 C 91 16 139/80 H 95 06/28/17 10:04 06/28/17 10:04 06/28/17 10:04 06/28/17 10:04 06/28/17 10:04 Laboratory Results 06/27/17 06:25 MSE: Disheveled, pressured. Affect is elevated. Mood is "fine." TP tangential. TC reveals some paranoid thoughts. - Time Spent With Patient Time Spent With Patient: 15" ICD10 Worksheet Patient Problems: Problems Problem Status Onset Bipolar 1 disorder Acute Pneumonia Acute Rotator Cuff Repair Active Bipolar disorder Acute
[2017-06-28] MEDS: OLANZapine DISINTEGR 10 MG TAB PO SCH (18:15)
[2017-06-29] MEDS: PROPRANOLOL HCL 10 MG TAB PO SCH ×3 (08:54→20:27)
[2017-06-29] MEDS: FAMOTIDINE 20 MG TAB PO SCH ×2 (09:00→18:45)
[2017-06-29] MEDS: OLANZapine DISINTEGR 10 MG TAB PO PRN ×2 (09:00→20:36)
[2017-06-29] MEDS: clonazePAM 1 MG TAB PO SCH ×3 (09:01→20:27)
[2017-06-29] MEDS: oxyCODONE IR 5 MG TAB PO PRN ×2 (09:02→18:45)
[2017-06-29] MEDS: ALBUTEROL 60 PUFFS/8 GM MDI IH PRN ×3 (10:45→21:27)
[2017-06-29] MEDS: POLYETHYLENE GLYCOL 3350 17 GM PKT PO SCH (11:46)
[2017-06-29] MEDS: DIVALPROEX ER 500 MG TAB PO SCH ×2 (13:46→18:44)
[2017-06-29] MEDS: VALPROIC ACID 250 MG/5 ML UDCUP PO SCH (15:11)
--- NOTE | 2017-06-29 15:21 | SOAPPROG ---
SOAP Progress Note Assessment/Plan: Assessment: Plan: 06/27/17 14:16 Bipolar D/o: remains manic. CCM. 06/28/17 12:16 Bipolar D/o: Remains manic though improving. CCM. 06/29/17 15:22 Bipolar D/o: Continued gradual improvement. CCM. Subjective: Pt seen, discussed with staff. Reports feeling "just about normal." He remains quite pressured, intrusive. Better able to terminate with me today. States he is agreeable to being here as long as I recommend. Thankful for my time. Compliant with all meds. Objective: Vital Signs Temp Pulse Resp BP Pulse Ox 36.3 C 58 L 16 106/64 97 06/29/17 00:30 06/29/17 00:30 06/29/17 00:30 06/29/17 00:30 06/29/17 00:30 Laboratory Results 06/27/17 06:25 MSE: Calm, coop. Speech is rapid, pressured. Affect is elevated, anxious. Mood is "OK." TP tangential. TC reveals continued paranoia. - Time Spent With Patient Time Spent With Patient: 15" ICD10 Worksheet Patient Problems: Problems Problem Status Onset Bipolar 1 disorder Acute Pneumonia Acute Rotator Cuff Repair Active Bipolar disorder Acute
[2017-06-29] MEDS ORDERED: ONDANSETRON DISINTEGRATING 4 MG TAB PO PRN (15:22)
[2017-06-29] MEDS: OLANZapine DISINTEGR 10 MG TAB PO SCH (18:45)
[2017-06-30] MEDS: DIVALPROEX ER 500 MG TAB PO SCH ×2 (08:29→19:48)
[2017-06-30] MEDS: FAMOTIDINE 20 MG TAB PO SCH ×2 (08:29→19:49)
[2017-06-30] MEDS: clonazePAM 1 MG TAB PO SCH ×3 (08:29→19:48)
[2017-06-30] MEDS: PROPRANOLOL HCL 10 MG TAB PO SCH ×3 (08:29→19:49)
[2017-06-30] MEDS: POLYETHYLENE GLYCOL 3350 17 GM PKT PO SCH (08:36)
[2017-06-30] MEDS: ALBUTEROL 60 PUFFS/8 GM MDI IH PRN ×2 (13:26→18:17)
--- NOTE | 2017-06-30 15:07 | SOAPPROG ---
SOAP Progress Note Assessment/Plan: Assessment: Per Dr. Danielle's note: 06/27/17 14:16 Bipolar D/o: remains manic. CCM. 06/28/17 12:16 Bipolar D/o: Remains manic though improving. CCM. 06/29/17 15:22 Bipolar D/o: Continued gradual improvement. [facility]. Plan: 06/30/17 15:03 1. No change to tx plan - [facility] 2. Patient complains about pain in his foot where his skin is dry and split. Will order Aquaphor. 3. VPA level is 89.6 Subjective: Met with patient, reviewed chart and d/w staff. Patient c/o pain in his feet d/ t blisters. However, RN says he has very dry skin and about a 1 inch split in epidermis on right big toe. Patient is wearing glasses that have white tape all around left eyeglass. He denies any SI/HI. Objective: Vital Signs Temp Pulse Resp BP Pulse Ox 36.2 C 66 12 158/92 H 96 06/30/17 11:45 06/30/17 11:45 06/30/17 11:45 06/30/17 11:45 06/30/17 11:45 Laboratory Results 06/27/17 06:25 MSE: Affect: Euthymic Mood: "Good" TP: Linear TC: No SI/HI, no AH/VH Insight /Judgment: Poor - Time Spent With Patient Time Spent With Patient: 20" - Pending Discharge Pending Discharge Within 24 Hours: No Pending Discharge Within 48 Hours: No ICD10 Worksheet Patient Problems: Problems Problem Status Onset Bipolar 1 disorder Acute Pneumonia Acute Rotator Cuff Repair Active Bipolar disorder Acute
[2017-06-30] MEDS: AQUAPHOR OINTMENT 3.5 OZ JAR TP PRN (18:17)
[2017-06-30] MEDS: oxyCODONE IR 5 MG TAB PO PRN (19:44)
[2017-06-30] MEDS: OLANZapine DISINTEGR 10 MG TAB PO SCH (19:50)
[2017-07-01] MEDS: DIVALPROEX ER 500 MG TAB PO SCH ×2 (08:29→21:19)
[2017-07-01] MEDS: PROPRANOLOL HCL 10 MG TAB PO SCH ×3 (08:29→21:21)
[2017-07-01] MEDS: FAMOTIDINE 20 MG TAB PO SCH ×2 (08:29→21:20)
[2017-07-01] MEDS: clonazePAM 1 MG TAB PO SCH ×3 (08:29→21:21)
[2017-07-01] MEDS: POLYETHYLENE GLYCOL 3350 17 GM PKT PO SCH (08:32)
--- NOTE | 2017-07-01 12:58 | SOAPPROG ---
SOAP Progress Note Assessment/Plan: Assessment: Per Dr. Danielle's note: 06/27/17 14:16 Bipolar D/o: remains manic. CCM. 06/28/17 12:16 Bipolar D/o: Remains manic though improving. CCM. 06/29/17 15:22 Bipolar D/o: Continued gradual improvement. CCM. Plan: 06/30/17 15:03 1. No change to tx plan - CCM 2. Patient complains about pain in his foot where his skin is dry and split. Will order Aquaphor. 3. VPA level is 89.6 07/01/17 12:54 1. BP slightly elevated - on Propranolol 2. Continue Aquaphor for dry feet 3. CCM - slow improvement Subjective: Met with patient, reviewed chart and d/w staff. Patient is sitting on edge of his bed crying. He is extremely agitated about "losing my house and my car." He says all he does and sit and "think about all my problems." He has a long list to worry about. He says he doesn't have money to pay to have his car fixed. He doesn't have money to pay to get his glasses fixed. And he is worried about losing his housing. He says he has to "get someone to go clean my house" before 07/03/17, but doesn't want them "doing it unless I'm there." suggests that patient focus on one issue at a time by making a list and only devoting his time and energy to one issue each day. Yin, the CM, said she will help him call cleaning services and make those arrangements. Patient denies any SI/HI. Objective: Vital Signs Temp Pulse Resp BP Pulse Ox 37.6 C 58 L 14 121/71 H 96 06/30/17 16:00 07/01/17 00:30 07/01/17 00:30 07/01/17 00:30 07/01/17 00:30 Laboratory Results 06/27/17 06:25 MSE: Affect: Tearful, crying Mood: Sad, anxious TP: Tangential, disorganized TC: No SI/HI, less paranoid, no AH/VH today Insight/Judgment: Poor - Time Spent With Patient Time Spent With Patient: 20" - Pending Discharge Pending Discharge Within 24 Hours: No Pending Discharge Within 48 Hours: No ICD10 Worksheet Patient Problems: Problems Problem Status Onset Bipolar 1 disorder Acute Pneumonia Acute Rotator Cuff Repair Active Bipolar disorder Acute
[2017-07-01] MEDS: oxyCODONE IR 5 MG TAB PO PRN ×2 (14:30→21:21)
[2017-07-01] MEDS: ALBUTEROL 60 PUFFS/8 GM MDI IH PRN ×3 (14:50→23:28)
[2017-07-01] MEDS: AQUAPHOR OINTMENT 3.5 OZ JAR TP PRN (21:41)
[2017-07-01] MEDS: OLANZapine DISINTEGR 10 MG TAB PO SCH (21:43)
[2017-07-02] MEDS: PROPRANOLOL HCL 10 MG TAB PO SCH ×3 (09:01→21:46)
[2017-07-02] MEDS: DIVALPROEX ER 500 MG TAB PO SCH ×2 (09:01→21:45)
[2017-07-02] MEDS: clonazePAM 1 MG TAB PO SCH ×3 (09:01→21:45)
[2017-07-02] MEDS: FAMOTIDINE 20 MG TAB PO SCH ×2 (09:01→21:46)
[2017-07-02] MEDS: POLYETHYLENE GLYCOL 3350 17 GM PKT PO SCH (09:02)
[2017-07-02] MEDS: AQUAPHOR OINTMENT 3.5 OZ JAR TP PRN (09:02)
[2017-07-02] MEDS: oxyCODONE IR 5 MG TAB PO PRN (09:08)
[2017-07-02] MEDS: ALBUTEROL 60 PUFFS/8 GM MDI IH PRN (11:00)
--- NOTE | 2017-07-02 11:03 | SOAPPROG ---
SOAP Progress Note Assessment/Plan: Assessment: Plan: 06/27/17 14:16 Bipolar D/o: remains manic. CCM. 06/28/17 12:16 Bipolar D/o: Remains manic though improving. CCM. 06/29/17 15:22 Bipolar D/o: Continued gradual improvement. CCM. 07/02/17 11:03 Bipolar D/o: Improved though remains pressured. CCM. Subjective: Pt seen, discussed with staff. Reports feeling "still worried" about car and apartment, etc. He remained labile and disorganized over weekend. Still somewhat impulsive. Struggles socializing due to anxiety and pressured thoughts. Behaviors stable. Compliant with meds. Objective: Vital Signs Temp Pulse Resp BP Pulse Ox 36.6 C 62 16 113/67 94 07/01/17 16:00 07/02/17 09:01 07/02/17 00:30 07/02/17 09:01 07/02/17 00:30 Laboratory Results 06/27/17 06:25 MSE: Moderately activated, anxious, pressured. Affect is constricted, intense. Mood is "good." TP tangential at times. TC reveals no overt psychosis. States he is planning to return to his apartment to clean prior to the [employer] inspection. 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 " - Time Spent With Patient Time Spent With Patient: 25" ICD10 Worksheet Patient Problems: Problems Problem Status Onset Bipolar 1 disorder Acute Pneumonia Acute Rotator Cuff Repair Active Bipolar disorder Acute
[2017-07-02] MEDS: OLANZapine DISINTEGR 10 MG TAB PO SCH (21:47)
[2017-07-03] MEDS: POLYETHYLENE GLYCOL 3350 17 GM PKT PO SCH (08:58)
[2017-07-03] MEDS: clonazePAM 1 MG TAB PO SCH ×3 (08:59→20:12)
[2017-07-03] MEDS: FAMOTIDINE 20 MG TAB PO SCH ×2 (08:59→20:13)
[2017-07-03] MEDS: PROPRANOLOL HCL 10 MG TAB PO SCH ×2 (08:59→20:12)
[2017-07-03] MEDS: DIVALPROEX ER 500 MG TAB PO SCH ×2 (08:59→20:12)
[2017-07-03] MEDS: oxyCODONE IR 5 MG TAB PO PRN ×2 (09:05→15:54)
--- NOTE | 2017-07-03 14:24 | SOAPPROG ---
SOAP Progress Note Assessment/Plan: Assessment: Plan: 06/27/17 14:16 Bipolar D/o: remains manic. CCM. 06/28/17 12:16 Bipolar D/o: Remains manic though improving. CCM. 06/29/17 15:22 Bipolar D/o: Continued gradual improvement. CCM. 07/02/17 11:03 Bipolar D/o: Improved though remains pressured. CCM. 07/03/17 14:24 Bipolar D/o: Continued improvement. CCM. Likely d/c in next 2-3 days. Subjective: Pt seen, discussed with staff. Pleasant and interactive. States he is "really anxious", mostly about his apartment and needing to clean it. He states he feels like he is "getting back to normal." We discussed d/c and he believes he will be able to go home by the end of the week. Staff notes him to be anxious, isolative, pressured at times. Remains demanding of staff time and attention. No behavioral issues noted. Compliant with all meds and some therapies. C/o should pain, "10/10" today. Objective: Vital Signs Temp Pulse Resp BP Pulse Ox 36.3 C 79 16 153/91 H 97 07/03/17 08:00 07/03/17 08:00 07/03/17 08:00 07/03/17 08:00 07/03/17 08:00 Laboratory Results 06/27/17 06:25 MSE: Marginally groomed (which he apologized for), coop. Affect is anxious, constricted, stable and appropriate. Mood is "anxious." TP is generally linear. TC reveals some continued mild paranoia. - Time Spent With Patient Time Spent With Patient: 25" ICD10 Worksheet Patient Problems: Problems Problem Status Onset Bipolar 1 disorder Acute Pneumonia Acute Rotator Cuff Repair Active Bipolar disorder Acute
[2017-07-03] MEDS: ALBUTEROL 60 PUFFS/8 GM MDI IH PRN ×2 (16:22→23:21)
[2017-07-03] MEDS: OLANZapine DISINTEGR 10 MG TAB PO SCH (20:13)
[2017-07-03] MEDS: AQUAPHOR OINTMENT 3.5 OZ JAR TP PRN (22:07)
[2017-07-04] MEDS: PROPRANOLOL HCL 10 MG TAB PO SCH ×2 (09:06→20:42)
[2017-07-04] MEDS: DIVALPROEX ER 500 MG TAB PO SCH ×2 (09:06→20:41)
[2017-07-04] MEDS: FAMOTIDINE 20 MG TAB PO SCH ×2 (09:07→20:43)
[2017-07-04] MEDS: clonazePAM 1 MG TAB PO SCH ×3 (09:07→20:43)
[2017-07-04] MEDS: POLYETHYLENE GLYCOL 3350 17 GM PKT PO SCH (09:08)
[2017-07-04] MEDS: ALBUTEROL 60 PUFFS/8 GM MDI IH PRN (15:00)
--- NOTE | 2017-07-04 16:04 | SOAPPROG ---
SOAP Progress Note Assessment/Plan: Assessment: Plan: 06/27/17 14:16 Bipolar D/o: remains manic. CCM. 06/28/17 12:16 Bipolar D/o: Remains manic though improving. CCM. 06/29/17 15:22 Bipolar D/o: Continued gradual improvement. CCM. 07/02/17 11:03 Bipolar D/o: Improved though remains pressured. CCM. 07/03/17 14:24 Bipolar D/o: Continued improvement. CCM. Likely d/c in next 2-3 days. 07/04/17 16:04 Bipolar D/o: Anxious re: d/c issues. Overall condition is improving. CCM. Subjective: Pt seen, discussed with staff. Agitated, anxious last night. States he didn't sleep well due to "too many worries." Continues to perseverate on housing issues and car repairs. Spends most of his time in his room in bed. Little interaction with others. Behaviors are stable. Conforming to staff directions. Compliant with all meds. Objective: Vital Signs Temp Pulse Resp BP Pulse Ox 36.6 C 70 16 120/82 H 97 07/04/17 08:00 07/04/17 08:00 07/04/17 08:00 07/04/17 08:00 07/04/17 08:00 Laboratory Results 06/27/17 06:25 MSE: Moderately anxious, coop. Affect is o/w constricted, stable, approp. Mood is "worried." TP linear though perseverative. TC reveals continued paranoia. Denies SI/HI/. - Time Spent With Patient Time Spent With Patient: 25" ICD10 Worksheet Patient Problems: Problems Problem Status Onset Bipolar 1 disorder Acute Pneumonia Acute Rotator Cuff Repair Active Bipolar disorder Acute
[2017-07-04] MEDS: OLANZapine DISINTEGR 10 MG TAB PO SCH (20:42)
[2017-07-04] MEDS: oxyCODONE IR 5 MG TAB PO PRN (21:48)
[2017-07-05] MEDS: PROPRANOLOL HCL 10 MG TAB PO SCH ×2 (09:03→20:38)
[2017-07-05] MEDS: DIVALPROEX ER 500 MG TAB PO SCH ×2 (09:03→20:37)
[2017-07-05] MEDS: FAMOTIDINE 20 MG TAB PO SCH ×2 (09:04→20:38)
[2017-07-05] MEDS: clonazePAM 1 MG TAB PO SCH ×3 (09:04→20:38)
[2017-07-05] MEDS: POLYETHYLENE GLYCOL 3350 17 GM PKT PO SCH (09:05)
[2017-07-05] MEDS: oxyCODONE IR 5 MG TAB PO PRN ×3 (09:32→21:52)
--- NOTE | 2017-07-05 12:59 | SOAPPROG ---
SOAP Progress Note Assessment/Plan: Assessment: Plan: 06/27/17 14:16 Bipolar D/o: remains manic. CCM. 06/28/17 12:16 Bipolar D/o: Remains manic though improving. CCM. 06/29/17 15:22 Bipolar D/o: Continued gradual improvement. CCM. 07/02/17 11:03 Bipolar D/o: Improved though remains pressured. CCM. 07/03/17 14:24 Bipolar D/o: Continued improvement. CCM. Likely d/c in next 2-3 days. 07/04/17 16:04 Bipolar D/o: Anxious re: d/c issues. Overall condition is improving. CCM. 07/05/17 12:58 Bipolar D/o: Remains anxious. Will CCM. Subjective: Pt seen, discussed with staff. States he is "too anxious" to d/c today. Somewhat irritable this morning, anxious. Remains compliant with meds. Objective: Vital Signs Temp Pulse Resp BP Pulse Ox 37.5 C 68 16 131/85 H 95 07/04/17 16:00 07/05/17 00:30 07/05/17 00:30 07/05/17 00:30 07/05/17 00:30 Laboratory Results 06/27/17 06:25 - Time Spent With Patient Time Spent With Patient: 25" ICD10 Worksheet Patient Problems: Problems Problem Status Onset Bipolar 1 disorder Acute Pneumonia Acute Rotator Cuff Repair Active Bipolar disorder Acute
[2017-07-05] MEDS: OLANZapine DISINTEGR 10 MG TAB PO SCH (20:38)
[2017-07-06 06:31] VITALS: BP 114/75; PULSE 75; RESP 16; TEMP 98; O2SAT 93
[2017-07-06] MEDS: PROPRANOLOL HCL 10 MG TAB PO SCH (08:17)
[2017-07-06] MEDS: FAMOTIDINE 20 MG TAB PO SCH (08:18)
[2017-07-06] MEDS: clonazePAM 1 MG TAB PO SCH (08:18)
[2017-07-06] MEDS: DIVALPROEX ER 500 MG TAB PO SCH (08:18)
[2017-07-06] MEDS: POLYETHYLENE GLYCOL 3350 17 GM PKT PO SCH (09:01)
== END 2017-07-06 11:46 | disposition home or self-care (01) | DRG 885 ==
LOC: EDUNIT# → BBEH 06-25 17:10
PROVIDERS: ADMIT Psychiatry & Neurology Psychiatry; ATTEND Psychiatry & Neurology Psychiatry
DX: F31.2 Bipolar disorder, current episode manic severe with psychotic features (principal); F11.20 Opioid dependence, uncomplicated; K59.03 Drug induced constipation; T40.2X5A Adverse effect of other opioids, initial encounter; G89.29 Other chronic pain; H91.92 Unspecified hearing loss, left ear; R25.1 Tremor, unspecified; J45.909 Unspecified asthma, uncomplicated; I10 Essential (primary) hypertension
CPT/HCPCS: 80305

== ENCOUNTER 2017-07-16 09:43 | Emergency (ER) | payer OTHER, MEDICAID ==
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
[2017-07-16 12:37] LABS: PLATELET COUNT 210 10^3/uL (150-400)
[2017-07-16] MEDS ORDERED: LORazepam 1 MG TAB PO ONE (12:38)
[2017-07-17] MEDS ORDERED: LORazepam 1 MG TAB ONE ×2 (10:42→16:59)
[2017-07-17] MEDS ORDERED: LORazepam 1 MG TAB PO ONE ×2 (10:42→17:02)
[2017-07-17] MEDS ORDERED: LORAZEPAM 1 MG PREPACK#4 BTL TAKEHOME ONE (12:43)
[2017-07-17 18:08] VITALS: O2SAT 94
[2017-07-17] MEDS ORDERED: OLANZapine 5 MG TAB PO ONE (20:43)
[2017-07-17] MEDS ORDERED: DIVALPROEX ER 500 MG TAB PO ONE (21:30)
[2017-07-17 22:17] VITALS: BP 135/79; PULSE 67; RESP 18; TEMP 98.6
== END 2017-07-17 22:02 | disposition home or self-care (01) ==
DX: R45.851 Suicidal ideations (principal); F31.9 Bipolar disorder, unspecified
CPT/HCPCS: 80305; G0480

== ENCOUNTER → 2017-08-17 | Outpatient (CLI) | payer OTHER, MEDICAID | LOC: FIMAGING 10:57 | PROVIDERS: ATTEND Internal Medicine Gastroenterology | DX: K76.0 Fatty (change of) liver, not elsewhere classified (principal); K80.20 Calculus of gallbladder without cholecystitis without obstruction; K75.9 Inflammatory liver disease, unspecified ==

== ENCOUNTER 2018-02-28 10:42 | Inpatient (IN) | payer OTHER, MEDICAID ==
[2018-02-28] MEDS ORDERED: HALOPERIDOL LACT 5 MG/ML INJ ONE (10:52)
[2018-02-28] MEDS ORDERED: HALOPERIDOL LACT 5 MG/ML INJ IM ONE ×2 (10:56→15:46)
[2018-02-28] MEDS ORDERED: LORazepam 1 MG TAB PO ONE (11:20)
[2018-02-28 11:38] LABS: PLATELET COUNT 234 10^3/uL (150-400)
--- NOTE | 2018-02-28 12:27 | EDPHY ---
H & P Smoking Status: Never smoked Time Seen by Provider: 02/28/18 10:49 HPI/ROS: CHIEF COMPLAINT: M1 hold HISTORY OF PRESENT ILLNESS: 63-year-old male presents to the emergency department on M1 hold by ambulance from [facility]. The patient has a known history of bipolar. He states that he has not been taking his medications. He denies suicidal or homicidal ideation. He was just at [facility] and was placed on an M1 hold. Patient denies pain in his chest or difficulty breathing. Denies abdominal pain. Denies vomiting or diarrhea. Denies headache. Denies substance abuse or alcohol. Denies auditory or visual hallucinations. REVIEW OF SYSTEMS: Constitutional: No fever, no chills. Eyes: No double or blurry vision. ENT: No sore throat. Respiratory: No cough, no shortness of breath. Cardiac: No chest pain. Gastrointestinal: No abdominal pain, vomiting or diarrhea. Genitourinary: No dysuria. Musculoskeletal: No neck or back pain. Skin: No rashes. Neurological: No headache. (Renetta Curry) Past Medical/Surgical History: Bipolar (Renetta Curry) Social History: Homeless (Renetta Curry) Physical Exam: General Appearance: Alert, no distress. Hyperverbal and yelling upon arrival. Eyes: Pupils equal and round. Extraocular motions are all intact. ENT: Mouth: Mucous membranes moist. Respiratory: No wheezing, rhonchi, or rales, lungs are clear to auscultation. Cardiovascular: Regular rate and rhythm. Gastrointestinal: Abdomen is soft and nontender, no masses, no rebound or guarding, bowel sounds normal. Neurological: Alert and oriented x 3, cranial nerves II through XII grossly intact Skin: Warm and dry, no rashes. Musculoskeletal: Nontender to palpate along the cervical, thoracic or lumbar spine. Neck is supple. Extremities: Full range of motion and no peripheral edema. Psychiatric: Patient is oriented X 3, there is no agitation. (Renetta Curry) Constitutional: Initial Vital Signs Temperature (C) 37 C 02/28/18 10:57 Heart Rate 95 02/28/18 10:57 Respiratory Rate 18 02/28/18 10:57 Blood Pressure 169/94 H 02/28/18 10:57 O2 Sat (%) 96 02/28/18 10:57 O2 Delivery Mode Room Air Allergies/Adverse Reactions: No Known Allergies Allergy (Verified 07/16/17 10:08) Home Medications: Medication Instructions Recorded Albuterol [Proventil Inhaler HFA 2 puffs IH Q4HRS PRN mdi 07/06/17 (*)] Divalproex ER [Depakote ER 500 MG 1,000 mg PO DAILY #60 tab 07/06/17 (*)] Propranolol HCl [Inderal 10mg (*)] 20 mg PO BID #60 tab 07/06/17 clonazePAM [klonoPIN (*)] 1 mg PO TID #90 tab 07/06/17 oxyCODONE IR [Oxycodone Ir (*)] 10 mg PO Q6 PRN #30 tab 07/06/17 Divalproex ER [Depakote ER 500 MG 1,500 mg PO HS 07/17/17 (*)] Famotidine [Pepcid 20 MG (*)] 20 mg PO BID 07/17/17 Mineral Oil/Pet Hy-Phl [Aquaphor 1 john TP BID PRN 07/17/17 Ointment (*)] Sennosides [Senokot 8.6mg (OTC)] 1 each PO BID PRN 07/17/17 Meloxicam 15 mg PO DAILY 03/01/18 Naloxone HCl 1 mg IJ PRN PRN 03/01/18 OLANZapine [Zyprexa] 10 mg PO HS 03/01/18 Medical Decision Making ED Course/Re-evaluation: 15:40 Alerted by nurse that the patient is threatening staff. He is HIV positive and states he "doesn't mind sharing" and is threatening to bite people. He admits to homicidal ideation. Plan to call law enforcement at this time as the patient is currently a danger to staff. ED staff feel unsafe and that they do not have adequate resources to manage the patient. He has already received 5mg IM Haldol and 1mg PO Ativan. Tox screen positive for marijuana, no other substances. Laboratory studies are largely unremarkable. The patient is medically cleared for transport to halfway should this be warranted. I suspect at this time that the patient will depart the emergency department under law enforcement custody given his current behavior. 15:47 Patient cannot be taken to halfway for threatening to bite, per law enforcement sergeant. Plan to administer an additional 5mg IM Haldol at this time. (Yossi Vegas) 63-year-old male presents on M1 hold. He states"I am willing to take IM Haldol ". He states that his psychiatrist who is new to him to, Dr. Bocanegra, "would not give me my clonazepam". The patient was extremely agitated. He is requesting IM Haldol. He was initially given 5 mg of IM Haldol 1 mg of oral Ativan. The patient was threatening with staff. He stating that he is HIV positive and threatening to bite people. He was going to be evaluated by mental health the mental health bight maker did not feel comfortable evaluated him in this state. He was given additional 5 mg of IM Haldol, 2 mg of IM Ativan, and 25 mg IM Benadryl. (Renetta Curry) Differential Diagnosis: Including but not limited to nimco, depression, hypoglycemia, infectious process , electrolyte abnormality, head injury and intoxicants. (Renetta Curry) Other Provider: I assumed care of the patient at 0700. The patient was evaluated by the mental health bight maker and has been accepted for inpatient admission at [address] [place] [address]'s inpatient psychiatric unit. The patient did receive an additional oral dose of Zyprexa and Ativan at 8:30 a.m.. The patient was accepted for admission by Dr. Troy Danielle. I have filled out the EMTALA transfer form. (Dinesh Beal) Care Turn Over: Care will be turned over to Dr. Yossi Vegas for disposition and plan. (Renetta Curry) 6:50 a.m.- The patient slept for some of my shift and then awoke and was again hostile with staff yelling in making multiple request. Currently he is being interviewed by the bight maker and appears cooperative. We will await their evaluation to director for care. The case will be signed out to the oncoming provider. (Deborah Marion) - Data Points Laboratory Results: Laboratory Results 02/28/18 11:30 02/28/18 11:30 Medications Given: Discontinued Medications Diphenhydramine HCl (Benadryl Injection) 25 mg IM EDNOW ONE Stop: 02/28/18 15:49 Last Admin: 02/28/18 16:08 Dose: 25 mg Haloperidol Lactate (Haldol Injection) 5 mg IM ONCE ONE Stop: 02/28/18 10:57 Last Admin: 02/28/18 11:10 Dose: 5 mg Haloperidol Lactate (Haldol Injection) 5 mg IM EDNOW ONE Stop: 02/28/18 15:47 Last Admin: 02/28/18 16:08 Dose: 5 mg Lorazepam (Ativan) 1 mg PO EDNOW ONE Stop: 02/28/18 11:21 Last Admin: 02/28/18 11:25 Dose: 1 mg Lorazepam (Ativan Injection) 1 mg IM EDNOW ONE Stop: 02/28/18 15:49 Last Admin: 02/28/18 16:08 Dose: 1 mg Lorazepam (Ativan) 1 mg PO EDNOW ONE Stop: 03/01/18 08:15 Last Admin: 03/01/18 08:19 Dose: 1 mg Olanzapine (Zyprexa Zydis) 10 mg PO EDNOW ONE Stop: 03/01/18 08:15 Last Admin: 03/01/18 08:19 Dose: 10 mg Departure - Departure Disposition: [facility] IP Clinical Impression: Nimco Condition: Good Referrals: Patient,NotPresent [Primary Care Provider] - As per Instructions
[2018-02-28] MEDS ORDERED: LORazepam 2 MG/ML INJ IM ONE (15:48)
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
--- NOTE | 2018-02-28 21:39 | ASMTLCPROG ---
Notes Note: Notes: Pt has been calmer and more cooperative, He is currently sleeping soundly. TLC evaluation to be completed in the AM. Date Signed: 02/28/2018 09:38 PM Electronically Signed By:Adelita Duarte
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
--- NOTE | 2018-03-01 08:13 | ASMTTCLDSP ---
TLC Discharge Disposition Disposition: Answers: Admit Disposition Notes: Notes: In consultation with [facility] ED physician, Lavern Escamilla MD and on-call psychiatrist, Troy Danielle MD, both concurred that pt appears to meet 27-65 criteria requiring psychiatric hospitalization as pt appears to be gravely disabled due to a mental illness condition. Pt was given the 3N prohibited belongings list while in the ED. Was patient given the Answers: Yes Inpatient Behavioral Health Prohibited Belongings List while in the ED? For inpatient [facility] admission, the following psychiatrist agreed to accept patient for admission to [facility]): Type of Hold: Answers: M1/72-hour Hold Hold initiated by: Answers: Psychiatrist Date Signed: 03/01/2018 08:12 AM Electronically Signed By:Kellee Ruggiero
[2018-03-01] MEDS ORDERED: OLANZapine DISINTEGR 10 MG TAB PO ONE ×2 (08:14→12:44)
[2018-03-01] MEDS ORDERED: LORazepam 1 MG TAB PO ONE ×2 (08:14→12:44)
[2018-03-01] MEDS ORDERED: diphenhydrAMINE 25 MG CAP PO ONE (12:45)
--- NOTE | 2018-03-01 14:00 | PDCONSULT ---
Skin Care Specialist Note: Mr. Rothman is a 63 yo male with a PMHx of Bipolar d/o, asthma, GERD, chronic pain , Hepatitis C? who presents to the ED on M1 hold by ambulance from [facility]. He reports that he has not been taking his medications at home. He reports that he has liver cancer and is currently receiving chemotherapy for this. He currently denies chest pain, SOB, f/c, d/c. ROS: Negative other than those reported in HPI Exam: GEN: Moderate distress HEENT: EOMI, NCAT CV: RRR, no m/r/g Lungs: CTA b/l Abd: S/NT/ND Ext: No c/c/e Neuro: No focal deficits Skin: No rashes noted : No patel in place A/P: Mr. Rothman is a 63 yo male with a PMHx of Bipolar d/o, asthma, GERD, chronic pain, Hepatitis C? who presents to the ED on M1 hold by ambulance from [facility]. From a medical perspective patient is hemodynamically stable with no lab abnormalities on admission. He reports a hx of liver cancer , he had an Abd U/S in 07/2017 which showed fatty liver but no discrete masses. I am unable to locate Hep C serology in EMR. This may be followed with as an outpatient after discharge from psych. Asthma - Continue PRN albuterol inhaler - No concern for current exacerbation GERD - Continue Pepcid BID Hep C - Unable to confirm diagnosis - Last RUQ U/S in 07/2017 which showed fatty liver, no cirrhosis - Followup as outpatient for further evaluation and management Chronic Pain - Patient reports b/l knee, shoulder pain from previous procedures - Continue home Oxycodone 10 mg q6 hours for pain HTN - Patient reports he is on Propanolol at home for this - BP WNL on admission, if BP remains elevated consider restarting vs. starting another antihypertensive (OSCAR-I, Diuretic)
[2018-03-01] MEDS ORDERED: NICOTINE POLACRILEX 2 MG GUM B PRN (14:45)
[2018-03-01] MEDS ORDERED: OLANZapine DISINTEGR 10 MG TAB PO PRN (14:45)
[2018-03-01] MEDS ORDERED: MAG HYDROX/AL HYDROX/SIMETH 30 ML UDCUP PO PRN (14:45)
[2018-03-01] MEDS ORDERED: ACETAMINOPHEN 325 MG TAB PO PRN (14:45)
[2018-03-01] MEDS ORDERED: MAGNESIUM HYDROXIDE 30 ML UDCUP PO PRN (14:45)
[2018-03-01] MEDS ORDERED: LORazepam 0.5 MG TAB PO PRN (14:45)
[2018-03-01] MEDS ORDERED: clonazePAM 1 MG TAB PO PRN ×2 (14:54→15:01)
[2018-03-01] MEDS ORDERED: DIVALPROEX ER 500 MG TAB PO ONE ×2 (14:56→15:45)
[2018-03-01] MEDS ORDERED: DIVALPROEX ER 500 MG TAB PO SCH (15:00)
--- NOTE | 2018-03-01 15:01 | ASMTBHMTP ---
Master Treatment Plan Master Treatment Plan Answers: Mood Instability with for: Psychosis Date: 03/01/2018 Diagnosis on Admission: BiPolar I Disorder with psychotic features 296.44 (F31.5) Expected length of stay: 3-5 days Reason for admission: Notes: The patient is a 63 YO, single, homeless, disabled, , male, single with no children, un/employed on disability, with a HX of bipolar. He is homeless and living in [place], [place]. The patient arrived via EMS on an M1 hold placed by P, Gaston Bocanegra MD. Per M1 hold, Bipolar off medications x2 weeks. Expressing SI has not slept for 7 days. Mixed manic and depression. Only drinking chocolate milk. Unable to care for self and danger to self. PT has history of being on disability for bipolar illness since his early 20s and chronic homelessness. Patient's stated presenting problems: Notes: Client would not participate Patient's goals for treatment: Notes: Client would not participate Patient's strengths: Notes: Client would not participate Identify supports outside of hospital: Notes: Client would not participate Discharge criteria: Notes: Patient will be able to demonstrate more stable mood by discharge. Initial disposition plan/considerations: Notes: Client would not participate Master Treatment Plan Required Signatures Psychiatrist signature: Answers: Psychiatrist: RN on-shift signature: Answers: RN: Patient signature: Answers: Patient: Date Signed: 03/01/2018 03:00 PM Electronically Signed By:Rk Perez
[2018-03-01] MEDS ORDERED: OLANZapine DISINTEGR 10 MG TAB ONE (17:51)
[2018-03-01] MEDS: OLANZapine DISINTEGR 10 MG TAB PO SCH (17:52)
[2018-03-01] MEDS: LORazepam 1 MG TAB PO PRN (22:50)
[2018-03-02] MEDS: LORazepam 1 MG TAB PO PRN ×3 (03:45→11:00)
--- NOTE | 2018-03-02 09:05 | PDMN ---
Medical Necessity Medical necessity: [facility] [id number] Bipolar Disorders, Adult, IP Care: 63 y/o w/ bipolar I d/o w/ psychotic features, on M1 hold, danger to self and others, unable to care for self, homeless
[2018-03-02] MEDS ORDERED: ALBUTEROL 60 PUFFS/8 GM MDI IH PRN (10:12)
[2018-03-02] MEDS: NON-FORMULARY NEW DRUG (Meloxicam [Meloxicam] 15 MG) PO SCH (10:30)
[2018-03-02] MEDS: OLANZapine 5 MG TAB PO PRN ×2 (11:00→21:23)
--- NOTE | 2018-03-02 15:23 | ASMTCMCOM ---
CM Note CM Note Notes: The patient has been verbally abusive to staff frequently through out the day. He has repeatedly slammed his door. He is demanding medication and treatment from staff. The patient refused to be calm and cooperative in order to meet with CC. Date Signed: 03/02/2018 03:06 PM Electronically Signed By:Callie Jj
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
[2018-03-02] MEDS: OLANZapine DISINTEGR 10 MG TAB PO SCH (18:56)
[2018-03-02] MEDS: FAMOTIDINE 20 MG TAB PO SCH (18:56)
[2018-03-02] MEDS: DIVALPROEX ER 500 MG TAB PO SCH (18:58)
[2018-03-02] MEDS ORDERED: FAMOTIDINE 20 MG TAB PO SCH (21:00)
[2018-03-02] MEDS ORDERED: DIVALPROEX ER 500 MG TAB PO SCH (21:00)
[2018-03-03] MEDS: OLANZapine 5 MG TAB PO PRN ×4 (02:01→15:54)
[2018-03-03] MEDS: LORazepam 1 MG TAB PO PRN ×4 (06:57→23:37)
[2018-03-03] MEDS: NON-FORMULARY NEW DRUG (Meloxicam [Meloxicam] 15 MG) PO SCH (08:19)
[2018-03-03] MEDS: FAMOTIDINE 20 MG TAB PO SCH ×3 (08:20→22:53)
--- NOTE | 2018-03-03 14:21 | ASMTCMCOM ---
CM Note CM Note Notes: The patient remains highly agitated and unwilling to communicate calmly with staff. This jingle writer asked the patient whether wanted to complete an LEANDER for [facility], he responded No. I dont share information between doctors anymore. If they want to keep me here for 90 days against my will and ruin my life, dog, and everything... I have a caregiver and she doesnt need to be your help I dont need your help Date Signed: 03/03/2018 01:30 PM Electronically Signed By:Callie Jj
--- NOTE | 2018-03-03 16:11 | SOAPPROG ---
SOAP Progress Note Assessment/Plan: Assessment: 63 yo single, unemployed man with h/o severe bipolar disorder I most often manic with psychotic features. He was admitted on M1 signed by his outpatient psychiatrist, Dr. Bocanegra, who felt patient was gravely disable and DTS. Plan: 03/03/18 16:05 1. Patient is much calmer and more appropriate during meeting with psych MD today. He denies ever voicing any SI, and states, "I'm glad I'm alive...I don't want to kill myself." 2. Patient states, "I'm not manic" and denies any AH/VH. He does reports thoughts have slowed down, he is sleeping > 5 hrs and speech is much more normal rate and volume today. 3. Patient continues to insist he needs chemotherapy b/c he has liver ca. Hospitalist looked at US of liver and noted fatty liver dz, but no evidence of tumor. 4. Patient refuses to sign LEANDER for outpatient PCP, Anisha Rebollar, who he claims prescribed him opioids for chronic pain. Patient says he doesn't want her "to cut me off like she did last time" he was in [facility] hospital. 5. Patient would like a new psychiatrist, but is willing to f/u at [facility]. 6. Patient states he has been homeless after he got "kicked" out of public housing in [place]. But he says recently he's been living in section 8 housing in [place]. 7. [facility] Subjective: Patient much calmer, more appropriate when meeting with MD. He is not yelling, cursing or slamming doors today. He does complain that we are not treating him for liver ca. However, hospitalist reviewed med records and found patient has fatty liver, but no evidence of masses or tumor. Patient request oxycodone for chronic pain which he has taken in past. However, when MD requested to contact patient's PCP, Anisha Rebollar (sp?) at [facility], patient refused. He said, "I want to talk to her first." He said he didn't want her to know he was on 3N b/c so she wouldn't "cut me off (opiates) like she did before" when he was admitted to psych hospital. He says she stopped prescribing opiates b/c she "thought I was mentally unstable." Objective: Vital Signs Temp Pulse Resp BP Pulse Ox 36.3 C 88 16 137/90 H 97 03/03/18 07:59 03/03/18 06:00 03/03/18 06:00 03/03/18 06:00 03/03/18 06:00 MSE: Affect: Irritable, labile, calmer than yesterday Mood: "I'm fine" TP: More linear and logical TC: Denies any SI/HI Perception: Denies AH/VH Insight /Judgment: Impaired - Time Spent With Patient Time Spent With Patient: 20" - Pending Discharge Pending Discharge Within 24 Hours: No Pending Discharge Within 48 Hours: No ICD10 Worksheet Patient Problems: Problems Problem Status Onset Dottie Acute Rotator Cuff Repair Active Bipolar 1 disorder Acute Bipolar disorder Acute Pneumonia Acute
[2018-03-03] MEDS: OLANZapine DISINTEGR 10 MG TAB PO SCH (22:53)
[2018-03-03] MEDS: DIVALPROEX ER 500 MG TAB PO SCH (22:54)
[2018-03-04] MEDS: LORazepam 1 MG TAB PO PRN ×2 (03:50→15:20)
[2018-03-04] MEDS: FAMOTIDINE 20 MG TAB PO SCH ×2 (10:02→19:21)
[2018-03-04] MEDS: NON-FORMULARY NEW DRUG (Meloxicam [Meloxicam] 15 MG) PO SCH (10:02)
--- NOTE | 2018-03-04 11:52 | ASMTCMCOM ---
CM Note CM Note Notes: The patient participated in his clinical treatment team rounds. He expressed concern about his medications, an interest in keeping his providers separate, and discharge planning. The patient apologized for his behavior in the milieu with staff and explained that his body is in withdraw from his pain medication which causes him to be irritable and labile. Date Signed: 03/04/2018 11:52 AM Electronically Signed By:Callie Jj
--- NOTE | 2018-03-04 16:01 | SOAPPROG ---
SOAP Progress Note Assessment/Plan: Assessment: Plan: 03/04/18 16:03 Mood: Improved over admission. [facility]. Coordinate d/c with [facility]. Subjective: Pt seen, discussed with staff, chart reviewed. He is known to me from June admission. He is interviewed individually and in Treatment Team meeting. He states he is fine and has no sx's of mental illness. Upset that Dr. Bocanegra "unnecessarily had me arrested." Compliant with treatment, though remains irritable at times. Compliant with meds. Voices concerns that his belongings may get stolen if he stays in the hospital too long. States he is willing to stay for 3-4 additional days, but does not want to stay 90 days. I assure him this will not be the case. Objective: Vital Signs Temp Pulse Resp BP Pulse Ox 36.3 C 88 16 137/90 H 97 03/03/18 07:59 03/03/18 06:00 03/03/18 06:00 03/03/18 06:00 03/03/18 06:00 MSE: Moderately agitated, coop. Affect is irritable, expansive. Mood is "not too good." TP is linear at times, but generally tangential. TC reveals paranoid thoughts. - Time Spent With Patient Time Spent With Patient: 25" ICD10 Worksheet Patient Problems: Problems Problem Status Onset Dottie Acute Rotator Cuff Repair Active Bipolar 1 disorder Acute Bipolar disorder Acute Pneumonia Acute
[2018-03-04] MEDS: OLANZapine DISINTEGR 10 MG TAB PO SCH (19:20)
[2018-03-04] MEDS: DIVALPROEX ER 500 MG TAB PO SCH (19:20)
[2018-03-05] MEDS: OLANZapine 5 MG TAB PO PRN ×2 (00:46→15:06)
[2018-03-05] MEDS: LORazepam 1 MG TAB PO PRN (00:47)
[2018-03-05] MEDS: FAMOTIDINE 20 MG TAB PO SCH ×2 (08:11→20:26)
[2018-03-05] MEDS: NON-FORMULARY NEW DRUG (Meloxicam [Meloxicam] 15 MG) PO SCH (08:13)
[2018-03-05] MEDS: clonazePAM 1 MG TAB PO SCH ×2 (12:36→20:26)
--- NOTE | 2018-03-05 16:39 | SOAPPROG ---
SOAP Progress Note Assessment/Plan: Assessment: Plan: 03/04/18 16:03 Mood: Improved over admission. [facility]. Coordinate d/c with [facility]. 03/05/18 16:41 Mood: Has plateaued. Remains manic. [facility]. Subjective: Pt seen, discussed with staff. Has been more agitated, checking and kicking doors, gaining access to PATTERNMAKER PLASTER's office and attempting to get on computer. He remains pressured, disorganized, paranoid. States he has to leave the hospital immediately to take care of his house plants. 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 Remains compliant with meds. No c/o's. Discussed treatment and d/c plans at length. Objective: Vital Signs Temp Pulse Resp BP Pulse Ox 36.4 C 85 14 133/94 H 96 03/05/18 06:00 03/05/18 06:00 03/05/18 06:00 03/05/18 06:00 03/05/18 06:00 MSE: Moderately agitated, pressured. Affect is elevated, expansive. Mood is "good, totally normal." TP is tangential. TC reveals continued paranoid and grandiose thoughts. - Time Spent With Patient Time Spent With Patient: 25" ICD10 Worksheet Patient Problems: Problems Problem Status Onset Dottie Acute Rotator Cuff Repair Active Bipolar 1 disorder Acute Bipolar disorder Acute Pneumonia Acute
[2018-03-05] MEDS: OLANZapine DISINTEGR 10 MG TAB PO SCH (20:26)
[2018-03-05] MEDS: DIVALPROEX ER 500 MG TAB PO SCH (20:26)
[2018-03-06] MEDS ORDERED: OLANZapine DISINTEGR 10 MG TAB PO ONE ×2 (07:54→10:54)
[2018-03-06] MEDS: clonazePAM 1 MG TAB PO SCH ×2 (07:55→19:16)
[2018-03-06] MEDS: FAMOTIDINE 20 MG TAB PO SCH ×2 (07:55→19:16)
[2018-03-06] MEDS ORDERED: LORazepam 1 MG TAB PO ONE (07:55)
[2018-03-06] MEDS: NON-FORMULARY NEW DRUG (Meloxicam [Meloxicam] 15 MG) PO SCH (07:55)
[2018-03-06] MEDS ORDERED: clonazePAM 1 MG TAB PO ONE ×2 (10:53→12:58)
--- NOTE | 2018-03-06 14:04 | SOAPPROG ---
SOAP Progress Note Assessment/Plan: Assessment: Plan: 03/04/18 16:03 Mood: Improved over admission. [facility]. Coordinate d/c with [facility]. 03/05/18 16:41 Mood: Has plateaued. Remains manic. [facility]. 03/06/18 14:09 Mood: Worse today. Will emphasize PRN Zyprexa today. Pt agrees to take. Monitor. Subjective: Pt seen, discussed with staff. Events of past day reviewed with staff and pt. He reports RN "hates me and just started screaming at me for no reason." "Everyone is mad at me and is punishing me." Denies breaking door, denies punching serra or kicking doors. Admits to slamming doors. Compliant with PO meds. Angry that I did not restart the Klonopin yesterday when in reality I did. He spit out morning meds not knowing this. His answer when confronted on the issue is, "That's worse. You're a doctor. You should know how important it is to give me another dose if I spit the first one out!" He agrees to attempt to manage his behaviors better, no destruction of property. Objective: Vital Signs Temp Pulse Resp BP Pulse Ox 36.3 C 96 16 145/91 H 96 03/06/18 06:00 03/06/18 06:00 03/06/18 06:00 03/06/18 06:00 03/06/18 06:00 MSE: Agitated, angry, generally coop. Affect is irritable, labile. Mood is "bad." TP is tangential. TC reveals paranoia, lack of insight. - Time Spent With Patient Time Spent With Patient: 25" ICD10 Worksheet Patient Problems: Problems Problem Status Onset Dottie Acute Rotator Cuff Repair Active Bipolar 1 disorder Acute Bipolar disorder Acute Pneumonia Acute
[2018-03-06] MEDS ORDERED: DIVALPROEX ER 500 MG TAB PO ONE (19:08)
[2018-03-06] MEDS: OLANZapine DISINTEGR 10 MG TAB PO SCH (19:16)
[2018-03-06] MEDS ORDERED: DIVALPROEX NA 125 MG CAP.SPRINKLE PO SCH (21:00)
[2018-03-07] MEDS: OLANZapine 5 MG TAB PO PRN ×3 (02:25→15:26)
[2018-03-07] MEDS: clonazePAM 1 MG TAB PO SCH ×2 (11:04→18:30)
[2018-03-07] MEDS: FAMOTIDINE 20 MG TAB PO SCH ×2 (11:05→19:14)
[2018-03-07] MEDS: NON-FORMULARY NEW DRUG (Meloxicam [Meloxicam] 15 MG) PO SCH (11:05)
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
[2018-03-07] MEDS ORDERED: clonazePAM 1 MG TAB PO ONE (15:18)
[2018-03-07] MEDS: DIVALPROEX ER 500 MG TAB PO SCH ×2 (19:15→19:19)
[2018-03-07] MEDS: OLANZapine DISINTEGR 10 MG TAB PO SCH (19:16)
[2018-03-08] MEDS: OLANZapine 5 MG TAB PO PRN ×5 (00:44→11:49)
[2018-03-08] MEDS: clonazePAM 1 MG TAB PO SCH ×2 (08:53→21:49)
[2018-03-08] MEDS ORDERED: VALPROIC ACID 250 MG/5 ML UDCUP PO ONE (10:52)
--- NOTE | 2018-03-08 11:30 | ASMTCMCOM ---
CM Note CM Note Notes: AKIRA and Trav spoke with his landlord, Devorah Dooley. Per Devorah, if Trav is not moved out by 04/05/18 she will move forward with eviction. She plans to have his condo rented out by April. She stated, He needs to give me something in writing that he will be out by a certain date and then be out by that date. Although, she wants to be considerate of his housing benefit, she is no longer willing to keep doing this month to month. She placed a notice to quit on his door, sent a certified copy, and emailed this documentation due to several lease violations including notifications from [facility]. This document requests that he be out in 30 days and initiates the eviction process. She had a roof designer come to change the lock today and he can request a new harding from her when he discharges. The patient's [facility] team has been notified. [facility], came to the unit to fix the patient's glasses. Date Signed: 03/08/2018 11:23 AM Electronically Signed By:Callie Jj
[2018-03-08] MEDS: NON-FORMULARY NEW DRUG (Meloxicam [Meloxicam] 15 MG) PO SCH (11:40)
[2018-03-08] MEDS: FAMOTIDINE 20 MG TAB PO SCH ×3 (11:40→21:49)
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
--- NOTE | 2018-03-08 14:58 | SOAPPROG ---
SOAP Progress Note Assessment/Plan: Assessment: Plan: 03/04/18 16:03 Mood: Improved over admission. [facility]. Coordinate d/c with MHP. 03/05/18 16:41 Mood: Has plateaued. Remains manic. [facility]. 03/06/18 14:09 Mood: Worse today. Will emphasize PRN Zyprexa today. Pt agrees to take. Monitor. 03/07/18 14:26 Mood: Remains agitated, destructive, uncooperative. Will increase scheduled Zyprexa to 10mg TID, allowing one additional PRN dose. Will continue behavioral plan to monitor for cheeking. Will utilize E-meds if further threatening behaviors. 03/08/18 15:00 Mood: Remains intermittently agitated, verbally aggressive. Will CCM with continued use of seclusion or E-meds if he escalates further. Change to liquid VPA. Subjective: Pt seen, discussed with staff. Remains intermittently agitated, yelling and swearing at nurses. He refused VPA last night. When I asked him about that today, he angrily denied it. He then stated he will take it twice today and asks for "liquid Depakene". Objective: Vital Signs Temp Pulse Resp BP Pulse Ox 36.6 C 95 16 143/88 H 97 03/08/18 06:00 03/08/18 06:00 03/08/18 06:00 03/08/18 06:00 03/08/18 06:00 MSE: Moderately agitated, oppositional, angry at times. Yells several time, ultimately causing me to terminate interview. He then follows me out of the room, down the bedoya and into my office stating he wants to talk more and denying yelling - while yelling loudly. His affect is labile, irritable. Mood is "bad." TP is linear for brief periods, generally tangential. TC reveals continued paranoid and grandiose thoughts. - Time Spent With Patient Time Spent With Patient: 25" ICD10 Worksheet Patient Problems: Problems Problem Status Onset Dottie Acute Rotator Cuff Repair Active Bipolar 1 disorder Acute Bipolar disorder Acute Pneumonia Acute
[2018-03-08] MEDS: OLANZapine DISINTEGR 10 MG TAB PO SCH (21:49)
[2018-03-08] MEDS: VALPROIC ACID 250 MG/5 ML UDCUP PO SCH (21:49)
[2018-03-09] MEDS: OLANZapine 5 MG TAB PO PRN ×5 (02:00→21:59)
[2018-03-09] MEDS: clonazePAM 1 MG TAB PO SCH ×2 (09:17→20:26)
[2018-03-09] MEDS: FAMOTIDINE 20 MG TAB PO SCH ×2 (09:17→20:26)
[2018-03-09] MEDS: NON-FORMULARY NEW DRUG (Meloxicam [Meloxicam] 15 MG) PO SCH (09:22)
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
[2018-03-09] MEDS ORDERED: OLANZapine DISINTEGR 10 MG TAB PO PRN (14:57)
--- NOTE | 2018-03-09 15:30 | ASMTCMCOM ---
CM Note CM Note Notes: Pt's landlord is Devorah Dooley ([phone]) Pt. has been verbally abusive to all staff today and continues to make passive homicidal threats toward staff. Date Signed: 03/09/2018 02:59 PM Electronically Signed By:Yin Yang
[2018-03-09] MEDS: OLANZapine DISINTEGR 10 MG TAB PO SCH (20:26)
[2018-03-09] MEDS: VALPROIC ACID 250 MG/5 ML UDCUP PO SCH (20:27)
[2018-03-09] MEDS ORDERED: OLANZapine DISINTEGR 10 MG TAB PO SCH (21:00)
[2018-03-09] MEDS ORDERED: clonazePAM 1 MG TAB PO SCH (21:00)
[2018-03-10] MEDS: OLANZapine 5 MG TAB PO PRN ×2 (02:35→08:48)
[2018-03-10] MEDS: FAMOTIDINE 20 MG TAB PO SCH ×2 (08:48→20:27)
[2018-03-10] MEDS: clonazePAM 1 MG TAB PO SCH ×2 (08:48→20:27)
[2018-03-10] MEDS: NON-FORMULARY NEW DRUG (Meloxicam [Meloxicam] 15 MG) PO SCH (09:02)
[2018-03-10] MEDS ORDERED: OLANZapine DISINTEGR 10 MG TAB PO SCH ×2 (12:07→21:00)
[2018-03-10] MEDS ORDERED: IBUPROFEN 600 MG TAB PO PRN (13:45)
--- NOTE | 2018-03-10 14:17 | SOAPPROG ---
SOAP Progress Note Assessment/Plan: Assessment: 63yo CM with BMD, with paranoia, agitation, irritability, and disruptive behaviors, has been cheeking meds on unit and now on monitored meds and behavior plan 03/09/18 11:48 Per staff, slept 7hr. Required seclusion this AM due to loud, aggressive behavior and verbal threats to RN. Took prn Zyprexa with AM Klonopin. Continues on behavior plan with restrictions due to his disruptive behaviors earlier in week, which continue but to lesser degree. Phlegm on door handle noted when staff came for room check, pt reports he had sneezed. Allowed peanut butter this afternoon, and then staff noted PB smeared on inside of door handle during room check. Pt denied. Recently taking VPA since now in liquid form. Other meds crushed with mouth checks. Accepting of prn Zyprexa when offered by staff so far. Wants hot baths for pain relief. MSE: on interview, disheveled, slight incr psychom activity. speech incr vol, hostile tone; mood frustrated and "feeling harrassed" with being hospitalized and on so many restrictions which he alleges having no idea why, affect irritable, tp/tc- perseverative, disorganized, grandiose and paranoid. maintains he has only 2 years to live with his cirrhosis from Hep C and not happy with having to take zyprexa b/c reports he was part of the law suit filed against [employer]. insight-none, jdmt- poor. 03/10/18 14:07 slept 7hr last night. actually 8.5 the night before. additional info from yesterday was that pt had urinated in room apparently intentionally. continues to take offered prn meds. actually had total Zyprexa 50mg yesterday during 24hr period, with no reported adverse effects. has been verbally more in control but still disrespectful at times and sarcastic , not consistently following limits. no evid of med s/e. no current physical complaints except chronic joint pains for which he wants hot bath but restricted due to his uncooperative behaviors. MSE: disheveled, irritable, does not appear responding to internal stim. no SI and has not made threats to harm anyone today. i/j both poor. PLAN: continue meds- VPA liquid 2000mg qhs, and increase zyprexa to 20mg qhs, cont 10mg prn with TDD 40mg, although may tolerate higher as noted yesterday. cont klonopin 1mg bid cont restrictions, behavior plan pending improvement cont seclusion if needed for disruptive or threatening behaviors. seems responding a bit more readily to redirection and limits does not have home med Meloxicam available. Will offer Ibuprofen 600mg q6hr prn pain VPA level this week, altho with no evid of any s/e Objective: Vital Signs Temp Pulse Resp BP Pulse Ox 36.5 C 76 16 137/94 H 97 03/10/18 06:00 03/10/18 06:00 03/10/18 06:00 03/10/18 06:00 03/10/18 06:00 - Time Spent With Patient Time Spent With Patient: 15min - Pending Discharge Pending Discharge Within 24 Hours: No Pending Discharge Within 48 Hours: No ICD10 Worksheet Patient Problems: Problems Problem Status Onset Dottie Acute Rotator Cuff Repair Active Bipolar 1 disorder Acute Bipolar disorder Acute Pneumonia Acute
[2018-03-10] MEDS: VALPROIC ACID 250 MG/5 ML UDCUP PO SCH (20:26)
[2018-03-11] MEDS: OLANZapine 5 MG TAB PO PRN ×2 (01:55→08:26)
[2018-03-11] MEDS: clonazePAM 1 MG TAB PO SCH ×4 (08:25→22:44)
[2018-03-11] MEDS: FAMOTIDINE 20 MG TAB PO SCH ×2 (08:26→22:44)
[2018-03-11] MEDS: NON-FORMULARY NEW DRUG (Meloxicam [Meloxicam] 15 MG) PO SCH (09:17)
[2018-03-11] MEDS ORDERED: OLANZapine 5 MG TAB PO PRN (14:35)
--- NOTE | 2018-03-11 15:02 | SOAPPROG ---
SOAP Progress Note Assessment/Plan: Assessment: Most recent note from Dr. Garcia: Assessment: 63yo CM with BMD, with paranoia, agitation, irritability, and disruptive behaviors, has been cheeking meds on unit and now on monitored meds and behavior plan 03/09/18 11:48 Per staff, slept 7hr. Required seclusion this AM due to loud, aggressive behavior and verbal threats to RN. Took prn Zyprexa with AM Klonopin. Continues on behavior plan with restrictions due to his disruptive behaviors earlier in week, which continue but to lesser degree. Phlegm on door handle noted when staff came for room check, pt reports he had sneezed. Allowed peanut butter this afternoon, and then staff noted PB smeared on inside of door handle during room check. Pt denied. Recently taking VPA since now in liquid form. Other meds crushed with mouth checks. Accepting of prn Zyprexa when offered by staff so far. Wants hot baths for pain relief. MSE: on interview, disheveled, slight incr psychom activity. speech incr vol, hostile tone; mood frustrated and "feeling harrassed" with being hospitalized and on so many restrictions which he alleges having no idea why, affect irritable, tp/tc- perseverative, disorganized, grandiose and paranoid. maintains he has only 2 years to live with his cirrhosis from Hep C and not happy with having to take zyprexa b/c reports he was part of the law suit filed against [employer]. insight-none, jdmt- poor. 03/10/18 14:07 slept 7hr last night. actually 8.5 the night before. additional info from yesterday was that pt had urinated in room apparently intentionally. continues to take offered prn meds. actually had total Zyprexa 50mg yesterday during 24hr period, with no reported adverse effects. has been verbally more in control but still disrespectful at times and sarcastic , not consistently following limits. no evid of med s/e. no current physical complaints except chronic joint pains for which he wants hot bath but restricted due to his uncooperative behaviors. MSE: disheveled, irritable, does not appear responding to internal stim. no SI and has not made threats to harm anyone today. i/j both poor. PLAN: continue meds- VPA liquid 2000mg qhs, and increase zyprexa to 20mg qhs, cont 10mg prn with TDD 40mg, although may tolerate higher as noted yesterday. cont klonopin 1mg bid cont restrictions, behavior plan pending improvement cont seclusion if needed for disruptive or threatening behaviors. seems responding a bit more readily to redirection and limits does not have home med Meloxicam available. Will offer Ibuprofen 600mg q6hr prn pain VPA level this week, altho with no evid of any s/e PLAN: 03/11/18 14:37 1. Patient continues to exhibit aggressive bxs, making threats to kill staff, intentionally urinating and damaging his room. Patient was given multiple doses of PRN meds to de-escalate. He has surpassed the max safe dose (30mg) of Olanzapine on Sun & Sun (50mg and 40mg) with little demonstrable effect. Dr. Garcia noted no adverse effects from these high doses of SGA. MD does not notice any abnormal movements, stiffness or shuffling today. However, there is no proven benefit of Olanzapine for psychosis or dottie above 20mg TDD. The PRN doses seem to have limited effect on curbing aggression and hostile behaviors. Therefore, it might be more effective to give patient Haldol PRN as this neuroleptic has proven more effective for treating aggression and agitation than Olanzapine. 2. As a trial, MD recommends dividing up patient's dose of Olanzapine and giving 10mg TID to cover patient throughout the day. In addition, will prescribe Haldol 5mg Q4H PRN for episodes of agitation and aggressive bxs. This combo of typical and atypical may be more effective than atypical alone. 3. Patient may benefit from higher dose of VPA. His level on 03/07 was only 22.6 d/t noncompliance with meds in hospital. Will recheck level in a few more days and adjust dose as needed. Will divide the VPA dose since he is now taking liquid, which is IR instead of ER which he took at home. 4. Continue behavior support plan. 5. [facility] Subjective: Patient continues to be agitated, hostile and derogatory to staff. He continues to call female staff names and curse at staff. He initially refused to take his AM meds until he got a phone call. Over w/e, patient was in seclusion for threatening to kill staff and for aggressive behaviors. He took PO Olanzapine multiple times with limited effect. Since patient is routinely getting > 30mg of Olanzapine daily, MD recommends making his scheduled dose 10mg TID and adding Haldol PRN for aggression. For the first week of admission, patient was not taking meds. Instead he was cheeking and spitting out his meds. This has significantly delayed any improvement in patient's symptoms. Since changes were made to administer meds as liquid and to crush meds when possible, there is a much better chance of patient's condition improving. Objective: Vital Signs Temp Pulse Resp BP Pulse Ox 36.3 C 84 16 137/77 H 97 03/11/18 06:00 03/11/18 06:00 03/11/18 06:00 03/11/18 06:00 03/11/18 06:00 MSE: Affect: Irritable, labile Mood: Angry, hostile TP: Disorganized, tangential TC: No SI/HI Insight/Judgment: Impaired - Time Spent With Patient Time Spent With Patient: 15" - Pending Discharge Pending Discharge Within 24 Hours: No Pending Discharge Within 48 Hours: No ICD10 Worksheet Patient Problems: Problems Problem Status Onset Dottie Acute Rotator Cuff Repair Active Bipolar 1 disorder Acute Bipolar disorder Acute Pneumonia Acute
[2018-03-11] MEDS ORDERED: HALOPERIDOL 5 MG TAB PO PRN (15:36)
--- NOTE | 2018-03-11 16:03 | ASMTCMCOM ---
CM Note CM Note Notes: Client presents as juvenile on the unit. Affect is labile and loud. CC had client sign LEANDER for landlord, checked in with landlord; who is in the process of evicting client due to "constantly being late with his rent and because of his negative behaviors." CC reached out to [employer] (Jia- [phone]) with [facility]HP; no answer left detailed VM with all necessary return contact information. * Due to client's escalation towards staff over the past days, CC will try to have Jia speak to client about housing, etc. Date Signed: 03/11/2018 04:02 PM Electronically Signed By:Rk Perez
[2018-03-11] MEDS: OLANZapine DISINTEGR 10 MG TAB PO SCH ×3 (17:43→22:46)
[2018-03-11] MEDS: VALPROIC ACID 250 MG/5 ML UDCUP PO SCH (22:46)
[2018-03-12] MEDS: VALPROIC ACID 250 MG/5 ML UDCUP PO SCH ×3 (02:12→17:51)
[2018-03-12] MEDS: OLANZapine DISINTEGR 10 MG TAB PO SCH ×4 (02:14→20:26)
[2018-03-12] MEDS: clonazePAM 1 MG TAB PO SCH ×4 (02:14→20:26)
[2018-03-12] MEDS: FAMOTIDINE 20 MG TAB PO SCH ×2 (12:20→20:26)
[2018-03-12] MEDS: NON-FORMULARY NEW DRUG (Meloxicam [Meloxicam] 15 MG) PO SCH (12:20)
--- NOTE | 2018-03-12 13:52 | SOAPPROG ---
SOAP Progress Note Assessment/Plan: Assessment: Plan: 03/04/18 16:03 Mood: Improved over admission. [facility]. Coordinate d/c with P. 03/05/18 16:41 Mood: Has plateaued. Remains manic. CCM. 03/06/18 14:09 Mood: Worse today. Will emphasize PRN Zyprexa today. Pt agrees to take. Monitor. 03/07/18 14:26 Mood: Remains agitated, destructive, uncooperative. Will increase scheduled Zyprexa to 10mg TID, allowing one additional PRN dose. Will continue behavioral plan to monitor for cheeking. Will utilize E-meds if further threatening behaviors. 03/08/18 15:00 Mood: Remains intermittently agitated, verbally aggressive. Will CCM with continued use of seclusion or E-meds if he escalates further. Change to liquid VPA. 03/12/18 13:52 Mood: Much improved overall. I believe the majority of his ongoing disordered and disruptive behaviors are, in fact, behaviors and not evidence of ongoing acute instability. Will CCM. If he remains in adequate behavioral control, including allowing a VPA level tomorrow, will consider d/c to home. Subjective: Pt seen, discussed with staff. Reports feeling "normal, totally sane." Lying in bed. States, "I've been good. I haven't cussed at anybody, broken anything or yelled in 24 hours." I discussed with him staff's report that he peed on the floor in the night last night. He claims not to remember this. His behaviors were discussed in Treatment Team meeting this morning inc: clogging toilets and putting substances on door handles to essentially prank staff. All agree that this is likely evidence that he is approaching baseline and is becoming bored in the hospital rather than evidence that he remains acutely ill. He is sleeping >6hrs per night, eating adequately and performing ADL's. Objective: Vital Signs Temp Pulse Resp BP Pulse Ox 36.3 C 84 16 137/77 H 97 03/11/18 06:00 03/11/18 06:00 03/11/18 06:00 03/11/18 06:00 03/11/18 06:00 - Time Spent With Patient Time Spent With Patient: 15" ICD10 Worksheet Patient Problems: Problems Problem Status Onset Dottie Acute Rotator Cuff Repair Active Bipolar 1 disorder Acute Bipolar disorder Acute Pneumonia Acute
[2018-03-12] MEDS: LORazepam 0.5 MG TAB PO PRN ×2 (14:06→23:38)
--- NOTE | 2018-03-12 15:29 | ASMTBHDC ---
Notes Note: Notes: CC confirmed client's discharge appts: Follow Up: [facility] [address] [place] [address], [facility] Next Appointment with Gaston Bocanegra MD: SundayMarch 19 (03/19/18) @1:30pm Next Appointment with Jia Vigil therapist: March 21 (03/21/18) @11:30am Both Appts are at the [address] [place] [address] Location. Date Signed: 03/12/2018 03:28 PM Electronically Signed By:Rk Perez
[2018-03-13 06:58] VITALS: BP 132/95
[2018-03-13] MEDS: clonazePAM 1 MG TAB PO SCH (09:25)
[2018-03-13] MEDS: OLANZapine DISINTEGR 10 MG TAB PO SCH (09:25)
[2018-03-13] MEDS: FAMOTIDINE 20 MG TAB PO SCH (09:25)
[2018-03-13] MEDS: VALPROIC ACID 250 MG/5 ML UDCUP PO SCH (09:25)
[2018-03-13] MEDS: NON-FORMULARY NEW DRUG (Meloxicam [Meloxicam] 15 MG) PO SCH (11:10)
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
== END 2018-03-13 11:40 | disposition home or self-care (01) | DRG 885 ==
LOC: EDUNIT# → BBEH 03-01 14:00
PROVIDERS: ADMIT Psychiatry & Neurology Psychiatry; ATTEND Psychiatry & Neurology Psychiatry
DX: F31.2 Bipolar disorder, current episode manic severe with psychotic features (principal); F12.20 Cannabis dependence, uncomplicated; Z91.128 Patient's intentional underdosing of medication regimen for other reason; Z59.8 Other problems related to housing and economic circumstances; J45.909 Unspecified asthma, uncomplicated; K21.9 Gastro-esophageal reflux disease without esophagitis; Z87.820 Personal history of traumatic brain injury
CPT/HCPCS: 80305; G0480; J1200; J1630; J2060

== ENCOUNTER 2018-03-16 22:14 | Emergency (ER) | payer OTHER, MEDICAID ==
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
[2018-03-16] MEDS ORDERED: NS 500 ML IV ONE (22:41)
[2018-03-16 23:16] LABS: PLATELET COUNT 176 10^3/uL (150-400)
[2018-03-17] MEDS ORDERED: OLANZapine DISINTEGR 10 MG TAB PO ONE (05:14)
[2018-03-17] MEDS ORDERED: DIVALPROEX ER 500 MG TAB PO ONE (05:14)
[2018-03-17] MEDS ORDERED: clonazePAM 1 MG TAB PO ONE (08:47)
[2018-03-17 12:17] VITALS: BP 159/105
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
--- NOTE | 2018-03-17 14:09 | ASMTTCLDSP ---
TLC Discharge Disposition Disposition: Answers: Discharge If Answers: Yes DISCHARGED: Patient/family given suicide hotline info & SAMHSA brochure? Disposition Notes: Notes: Pt denied any SI or HI. His behavior was one of cooperation and his mood stable. Pt was able to report the address of his apt and the fact that he is being evicted and actively looking for another one with his Section 8 counselor, that he shops for food at [facility], uses the pharmacy next door to his home, needs to picking tech 2 prescriptions for Depakote and Zyprexa and has an appt on Sunday with his heel caser Jia Vigil. His presentation and ability to convey this information attests to his not being gravely disabled at this time. [facility] was contacted and informed of the pt's presence in the [facility] ED, his presentation and his d/c home. Discharge Concerns/Recommendations: Notes: In consultation with [facility] ED physician, Dr Avila MD and on-call psychiatrist,dr Reece MD, both concurred that Pt does not appear to meet 27-65 criteria requiring psychiatric hospitalization as Pt does not appear to be an imminent risk of harm to self/others/due to grave disability due to a mental illness condition. Dr. Reece MD provided telephone order read back vacating M1 hold at 12:00PM Psychiatrist vacating M1 Dr Recee MD Hold: Date and time M1 hold 03/17/2018 12:00 PM vacated (time format is hh:mm): Type of Hold: Answers: M1/72-hour Hold Hold initiated by: Answers: Police Date Signed: 03/17/2018 02:08 PM Electronically Signed By:Archana Bowman
== END 2018-03-17 12:16 | disposition home or self-care (01) ==
LOC: EDUNIT#
DX: F31.9 Bipolar disorder, unspecified (principal); E86.9 Volume depletion, unspecified
CPT/HCPCS: 80305; G0480

== ENCOUNTER 2018-03-18 02:16 | Inpatient (IN) | payer OTHER, MEDICAID ==
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
[2018-03-18] MEDS ORDERED: ONDANSETRON 4 MG/2 ML VIAL IVP PRN (05:23)
[2018-03-18] MEDS ORDERED: ONDANSETRON DISINTEGRATING 4 MG TAB PO PRN (05:23)
[2018-03-18] MEDS ORDERED: NS 1,000 ML IV ONE (05:24)
[2018-03-18 05:50] LABS: PLATELET COUNT 193 10^3/uL (150-400)
--- NOTE | 2018-03-18 06:37 | PDGENHP ---
History and Physical - Chief Complaint L ankle pain - History of Present Illness 63 yo M w/ hx of BPD presents with L ankle pain. Patient reports a somewhat disjointed story. He tells me he locked his keys in his car but also does not know where his car is. He was able to get into his apartment but could not get out the front door. For this reason he decided to try to exit his second story apartment through the balcony. He attempted to hang off the balcony and jump off but fell at least 10 feet. XR in the ED shows a L ankle fracture. He is being admitted for management of this. During my evaluation the patient is alert, oriented, and answering questions appropriately. He has a slightly odd affect but his mood and speech are well regulated. He tells me he has been taking Zyprexa 10 mg nightly. His Depakote level is also therapeutic. He denies SI. Case discussed with ED physician Dr. Marion; records reviewed in EMR. History Information - Allergies/Home Medication List Allergies/Adverse Reactions: No Known Allergies Allergy (Verified 03/18/18 02:28) Home Medications: Divalproex ER [Depakote ER 500 MG (*)] 2,500 mg PO HS 03/17/18 [Last Taken Unknown] I have personally reviewed and updated: family history, medical history - Past Medical History Additional medical history: Bipolar disorder - Surgical History Additional surgical history: Shoulder surgery - Family History Additional family history: Asked, denies - Social History Smoking Status: Never smoked Review of Systems Review of Systems: ROS: 10pt was reviewed & negative except for what was stated in HPI & below Physical Exam Physical Exam: Temp Pulse Resp BP Pulse Ox 36.4 C 91 18 132/87 H 96 03/18/18 06:30 03/18/18 06:30 03/18/18 06:30 03/18/18 06:30 03/18/18 05:56 Constitutional: appears nourished, uncomfortable Eyes: PERRL, other (L ptosis) Ears, Nose, Mouth, Throat: moist mucous membranes, no oral mucosal ulcers Cardiovascular: regular rate and rhythym, no murmur, rub, or gallop Respiratory: no respiratory distress, clear to auscultation Gastrointestinal: normoactive bowel sounds, soft, non-tender abdomen Skin: warm, normal color Musculoskeletal: full muscle strength, other (L foot in splint) Neurologic: AAOx3, CN II-XII Intact Psychiatric: interacting appropriately, not anxious Lab Data & Imaging Review 03/18/18 05:45 03/18/18 05:45 WBC 13.86 10^3/uL (3.80-9.50) H 03/18/18 05:45 RBC 4.35 10^6/uL (4.40-6.38) L 03/18/18 05:45 Hgb 14.0 g/dL (13.7-17.5) 03/18/18 05:45 Hct 39.7 % (40.0-51.0) L 03/18/18 05:45 MCV 91.3 fL (81.5-99.8) 03/18/18 05:45 MCH 32.2 pg (27.9-34.1) 03/18/18 05:45 MCHC 35.3 g/dL (32.4-36.7) 03/18/18 05:45 RDW 12.2 % (11.5-15.2) 03/18/18 05:45 Plt Count 193 10^3/uL (150-400) 03/18/18 05:45 MPV 9.1 fL (8.7-11.7) 03/18/18 05:45 Neut % (Auto) 80.2 % (39.3-74.2) H 03/18/18 05:45 Lymph % (Auto) 10.7 % (15.0-45.0) L 03/18/18 05:45 Mckean % (Auto) 8.2 % (4.5-13.0) 03/18/18 05:45 Eos % (Auto) 0.3 % (0.6-7.6) L 03/18/18 05:45 Baso % (Auto) 0.3 % (0.3-1.7) 03/18/18 05:45 Nucleat RBC Rel Count 0.0 % (0.0-0.2) 03/18/18 05:45 Absolute Neuts (auto) 11.12 10^3/uL (1.70-6.50) H 03/18/18 05:45 Absolute Lymphs (auto) 1.48 10^3/uL (1.00-3.00) 03/18/18 05:45 Absolute Monos (auto) 1.14 10^3/uL (0.30-0.80) H 03/18/18 05:45 Absolute Eos (auto) 0.04 10^3/uL (0.03-0.40) 03/18/18 05:45 Absolute Basos (auto) 0.04 10^3/uL (0.02-0.10) 03/18/18 05:45 Absolute Nucleated RBC 0.00 10^3/uL (0-0.01) 03/18/18 05:45 Immature Gran % 0.3 % (0.0-1.1) 03/18/18 05:45 Immature Gran # 0.04 10^3/uL (0.00-0.10) 03/18/18 05:45 Sodium 141 mEq/L (135-145) 03/18/18 05:45 Potassium 3.8 mEq/L (3.3-5.0) 03/18/18 05:45 Chloride 106 mEq/L (97-110) 03/18/18 05:45 Carbon Dioxide 26 mEq/l (22-31) 03/18/18 05:45 Anion Gap 9 mEq/L (8-16) 03/18/18 05:45 BUN 15 mg/dL (7-23) 03/18/18 05:45 Creatinine 0.7 mg/dL (0.7-1.3) 03/18/18 05:45 Estimated GFR > 60 03/18/18 05:45 Glucose 113 mg/dL (70-100) H 03/18/18 05:45 Calcium 8.6 mg/dL (8.5-10.4) 03/18/18 05:45 Valproic Acid 55.7 mcg/mL (50.0-150.0) 03/18/18 05:45 Assessment & Plan Assessment: 63 yo M presents with L tib/fib fracture after fall from balcony. Plan: 1. L tib/fib fracture, acute - Suffered while trying to exit his apartment through the second floor [facility]. XR (personally interpreted) consistent with L distal tib/fib fracture. - Splint placed in ED - Orthopedic service consulted - Maintain NPO - Oxycodone, morphine PRN for pain control 2. Bipolar disorder - On Zyprexa and Depakote as an outpatient. He appears fairly well compensated at the time of my evaluation. - Continue home medications Diet - NPO pending surgical evaluations Code - Full Ppx - SCDs Dispo - Admit under observation status
[2018-03-18] MEDS: ACETAMINOPHEN 325 MG TAB PO PRN ×2 (07:37→13:04)
[2018-03-18] MEDS: oxyCODONE IR 5 MG TAB PO PRN ×3 (07:37→21:58)
--- NOTE | 2018-03-18 08:20 | GCON ---
REASON FOR CONSULTATION: I was asked to see the patient by the emergency room physician. HISTORY OF PRESENT ILLNESS: The patient is a very pleasant 63-year-old gentleman who was trying to g et back into his apartment when he fell from a second-story window, resulting in immediate left ankle pain, deformity and inability to bear weight on the leg. He was seen in the emergency room and diag nosed with an ankle fracture and I was consulted. PHYSICAL EXAMINATION: The left ankle is swollen. Skin appears to be grossly clean, dry, and intact. Distally, he is well perfused and he is grossly neurologically intact, limited by pain. X-RAYS: Demonstrate what appears to be an atypical trimalleolar ankle fracture. He has what appears to be a very typical SER4 pattern on both medial and lateral malleoli, however, he appears to have a large anterior spike through the tibia. IMPRESSION: Left trimalleolar ankle fracture, closed. ASSESSMENT AND PLAN: I have asked that the patient be made n.p.o. We will get a CT scan just to mely e a look at the fracture pattern. Again, it is somewhat atypical in that the spike appears to be ant erior, but imaging is obviously limited by the study type. We will get a CT scan and we will keep th e patient n.p.o. at this point. When I saw him in his bed this morning, his foot was not elevated. I put the bed in reverse Trendelenburg. I would like him to be on bedrest for today. Will also ice the ankle substantially. I will also more than likely discuss this with one of my colleagues in term s of overall definitive management. Ultimately, this will require surgical fixation in order for the patient to be able to ambulate. In the meantime, the patient can be on chemical deep venous thrombo sis prophylaxis. /[id number]/MODL
[2018-03-18] MEDS ORDERED: ALBUTEROL 60 PUFFS/8 GM MDI IH PRN (08:35)
[2018-03-18] MEDS ORDERED: ENOXAPARIN 40 MG/0.4 ML SYR SC SCH (09:00)
--- NOTE | 2018-03-18 10:46 | HOSPPROG ---
Hospitalist Progress Note Assessment/Plan: 63yo M with bipolar disorder presents with fall from [employer] with left tib/fib fracture. #Left tib/fib and malleolar fracture: Demonstrated on CT. Traumatic after fall. - Ortho planning surgical repair tomorrow - Pain control - Elevate, ice #RLE erythema: Mild leukocytosis but suspect reactive from above. - Outline with marker to eval for progression - Hold on abx for now #Bipolar d/o: Odd affect but overall compensated. - Continue home meds Diet: regular today, NPO at midnight VTE ppx: LMWH today, hold in AM Code: full Dispo: Inpatient for above surgical procedure tomorrow. Subjective: Still having pain in leg. Hungry. Objective: Vital Signs Temp Pulse Resp BP Pulse Ox 36.7 C 87 16 122/71 H 94 03/18/18 08:00 03/18/18 08:00 03/18/18 08:00 03/18/18 08:00 03/18/18 08:00 Laboratory Results 03/18/18 05:45 03/18/18 05:45 03/17/18 03/18/18 03/19/18 05:59 05:59 05:59 Output Total 250 Balance -250 - Physical Exam Constitutional: no apparent distress, appears nourished, not in pain Eyes: PERRL, anicteric sclera, EOMI Ears, Nose, Mouth, Throat: moist mucous membranes, hearing normal, ears appear normal, no oral mucosal ulcers Cardiovascular: regular rate and rhythym, no murmur, rub, or gallop Respiratory: no respiratory distress, no rales or rhonchi, clear to auscultation Gastrointestinal: normoactive bowel sounds, soft, non-tender abdomen, no palpable masses Skin: other (RLE macular rash up to knee) Musculoskeletal: other (LLE wrapped in camille wrap) Neurologic: AAOx3, other Psychiatric: other (odd affect) ICD10 Worksheet Patient Problems: Problems Problem Status Onset Bipolar 1 disorder Acute Closed left ankle fracture Acute Fall from [employer] Acute Rotator Cuff Repair Active Bipolar disorder Acute Dottie Acute Pneumonia Acute
[2018-03-18] MEDS: FAMOTIDINE 20 MG TAB PO SCH ×2 (10:52→20:46)
[2018-03-18] MEDS: clonazePAM 0.5 MG TAB PO SCH ×2 (10:52→20:46)
[2018-03-18] MEDS: OLANZapine DISINTEGR 10 MG TAB PO SCH ×3 (10:59→20:46)
--- NOTE | 2018-03-18 11:54 | ASMTCMCOM ---
CM Note CM Note Notes: Chart reviewed today after noting patient's admission yesterday through the ER. Patient has Debbie FRAUSTO listed as his PCP in the chart. I have contacted Abdirahman HEWITT, care management associate at [facility] and confirmed that patient does see Debbie for pain management, however, patient does not have an established PCP at the clinic. Abdirahman will update Debbie re patient's admission to the hospital. Patient did have an appointment scheduled with Debbie this morning that patient missed due to his admission Date Signed: 03/18/2018 11:53 AM Electronically Signed By:Luz Arambula RN
--- NOTE | 2018-03-18 12:13 | ASMTCMCOM ---
CM Note CM Note Notes: Message left with patient's case mgr at [facility] , raman Padilla patient's admission Date Signed: 03/18/2018 12:12 PM Electronically Signed By:Luz Arambula RN
--- NOTE | 2018-03-18 12:44 | SOAPPROG ---
[facility] Progress Note Assessment/Plan: Assessment: Left sol fx Plan: plan orif tomorrow hold lovenox tomorrow nwb LLE ice elevate has redness on right leg concern for cellulitis but he says it is new since the fall, we will watch this area 03/18/18 12:42 Subjective: pain in left ankle Objective: Vital Signs Temp Pulse Resp BP Pulse Ox 36.8 C 75 16 118/77 95 03/18/18 11:32 03/18/18 11:32 03/18/18 11:32 03/18/18 11:32 03/18/18 11:32 Laboratory Results 03/18/18 05:45 03/18/18 05:45 03/17/18 03/18/18 03/19/18 05:59 05:59 05:59 Output Total 250 Balance -250 splint intact, can move toes ICD10 Worksheet Patient Problems: Problems Problem Status Onset Bipolar 1 disorder Acute Closed left ankle fracture Acute Fall from balcony Acute Rotator Cuff Repair Active Bipolar disorder Acute Dottie Acute Pneumonia Acute
--- NOTE | 2018-03-18 16:15 | ASMTCMCOM ---
CM Note CM Note Notes: 63yr old male admitted after a fall from his balcony and experiencing an ankle and tib/fib fx's. He has a Hx of Bipolar diso and has a P therapist. Patient lives alone in 2nd floor apartment with stairs. He reports that he has no family. Patient to have surgery Sunday. He has never been to Rehab in the past. Very sleepy, will talk to patient about rehab after surgery and therapy evals. He has Medicare/Medicaid. Date Signed: 03/18/2018 04:15 PM Electronically Signed By:Helen Donnelly LCSW
[2018-03-18] MEDS: NS 1,000 ML IV SCH (20:39)
[2018-03-18] MEDS ORDERED: DIVALPROEX ER 500 MG TAB PO SCH (21:00)
[2018-03-19] MEDS: oxyCODONE IR 5 MG TAB PO PRN ×3 (03:22→22:33)
[2018-03-19] MEDS: ACETAMINOPHEN 325 MG TAB PO PRN (06:00)
--- NOTE | 2018-03-19 07:43 | PDMN ---
Medical Necessity Medical necessity: Change to IP, as of 03/18/18, per MD; los >2 mn for ongoing management of L tib/fib fx s/p fall; requiring surgical intervention, IVFs & pain control
[2018-03-19] MEDS: OLANZapine DISINTEGR 10 MG TAB PO SCH ×2 (09:53→22:26)
[2018-03-19] MEDS: FAMOTIDINE 20 MG TAB PO SCH ×2 (09:53→22:25)
[2018-03-19] MEDS: clonazePAM 0.5 MG TAB PO SCH ×2 (09:53→22:24)
[2018-03-19] MEDS ORDERED: BUPIVACAINE 0.5% 30 ML SDV ONE (10:54)
--- NOTE | 2018-03-19 11:16 | HOSPPROG ---
Hospitalist Progress Note Assessment/Plan: 63yo M with bipolar disorder presents with fall from [facility] with left tib/fib fracture. #Left tib/fib and malleolar fracture: Demonstrated on CT. Traumatic after fall. - Ortho planning surgical repair today, he is NPO for this - Pain control - Elevate, ice #RLE erythema: Almost resolved, likely irritation from fall and less likely cellulitis. - No abx for now #Bipolar d/o: He has been very somnolent. I am concerned that he is not on proper dosing of his anti-psychotics and mood stabilizers - Discuss with pharmacy for appropriate dosing. For now will switch zyprexa from TID to QHS. VTE ppx: holding LMWH for surgery Code: full Dispo: Inpatient for above surgical procedure. Subjective: Sleepy this morning and seems a little confused. Still having some pain in LLE but otherwise feeling ok. NPO. Of note, he was very somnolent throughout day yesterday. RN held dose of zyprexa in middle of day after discussingn with me. Objective: Vital Signs Temp Pulse Resp BP Pulse Ox 36.9 C 86 14 134/85 H 90 L 03/19/18 07:17 03/19/18 07:17 03/19/18 07:17 03/19/18 07:17 03/19/18 07:17 Laboratory Results 03/19/18 04:36 03/19/18 04:36 03/18/18 03/19/18 03/20/18 05:59 05:59 05:59 Intake Total 725 Output Total 275 300 Balance 450 -300 - Physical Exam Constitutional: no apparent distress, appears nourished, not in pain Eyes: PERRL, anicteric sclera, EOMI Ears, Nose, Mouth, Throat: moist mucous membranes, hearing normal, ears appear normal, no oral mucosal ulcers Cardiovascular: regular rate and rhythym, no murmur, rub, or gallop Respiratory: no respiratory distress, no rales or rhonchi, clear to auscultation Gastrointestinal: normoactive bowel sounds, soft, non-tender abdomen, no palpable masses Skin: other (RLE erythema significantly improved) Musculoskeletal: other (LLE in camille wrap) Neurologic: other (somnolent) ICD10 Worksheet Patient Problems: Problems Problem Status Onset Bipolar 1 disorder Acute Closed left ankle fracture Acute Fall from balcony Acute Rotator Cuff Repair Active Bipolar disorder Acute Dottie Acute Pneumonia Acute
[2018-03-19] MEDS ORDERED: LR 1,000 ML IV ONE (11:46)
[2018-03-19] MEDS ORDERED: LIDOCAINE 1% 2 ML INJ ID PRN (11:46)
[2018-03-19] MEDS ORDERED: ROPIVACAINE HCL 150 MG/30 ML INJ ONE (11:50)
[2018-03-19] MEDS ORDERED: oxyCODONE IR 5 MG TAB PO PRN (12:04)
[2018-03-19] MEDS ORDERED: fentaNYL 100 MCG/2 ML INJ IVP PRN (12:04)
[2018-03-19] MEDS ORDERED: NALOXONE HCL 0.4 MG/ML INJ IVP PRN (12:04)
[2018-03-19] MEDS ORDERED: ALBUTEROL 3 ML DEYVIAL IH PRN (12:04)
[2018-03-19] MEDS ORDERED: ONDANSETRON 4 MG/2 ML VIAL IVP PRN (12:04)
[2018-03-19] MEDS ORDERED: HYDROCODONE/APAP 5/325 TAB PO PRN (12:04)
[2018-03-19] MEDS ORDERED: LR 500 ML IV PRN (12:04)
[2018-03-19] MEDS ORDERED: HYDROmorphONE/DILAUDID 2 MG/ML INJ IVP PRN (12:04)
--- NOTE | 2018-03-19 12:04 | PDANEPAE ---
ANE History of Present Illness here for L ankle ORIF ANE Past Medical History - Cardiovascular History Hx Hypertension: No Hx Arrhythmias: No Hx Chest Pain: No Hx Coronary Artery / Peripheral Vascular Disease: No Hx CHF / Valvular Disease: No Hx Palpitations: No - Pulmonary History Hx COPD: No Hx Asthma/Reactive Airway Disease: No Hx Recent Upper Respiratory Infection: No Hx Oxygen in Use at Home: No Hx Sleep Apnea: No Sleep Apnea Screening Result - Last Documented: Negative - Endocrine History Hx Diabetes: No Hypothyroid: No Hyperthyroid: No - Renal History Hx Renal Disorders: No - Liver History Hx Hepatic Disorders: No - Neurological & Psychiatric Hx Hx Neurological and Psychiatric Disorders: Yes Neurological / Psychiatric History Comment: bipolar - Cancer History Hx Cancer: No - Chronic Pain History Chronic Pain: Yes ANE Review of Systems Review of systems is: negative Review of Systems: - Exercise capacity Exercise capacity: <4 METS ANE Patient History - Allergies Allergies/Adverse Reactions: No Known Allergies Allergy (Verified 03/18/18 02:28) - Home Medications Home Medications: Divalproex ER [Depakote ER 500 MG (*)] 2,500 mg PO HS 03/17/18 [Last Taken 03/17] - NPO status NPO Since - Liquids (Date): 03/19/18 NPO Since - Liquids (Time): 00:00 NPO Since - Solids (Date): 03/18/18 NPO Since - Solids (Time): 20:00 - Smoking Hx Smoking Status: Never smoked ANE Labs/Vital Signs - Labs Result Diagrams: 03/19/18 04:36 03/19/18 04:36 - Vital Signs Vital Signs: reviewed preoperatively; see RN documention for details Blood Pressure: 136/83 Heart Rate: 88 Respiratory Rate: 16 O2 Sat (%): 94 Height: 185.42 cm Weight: 83.915 kg ANE Physical Exam - Airway Neck exam: FROM Mallampati Score: Class 1 Mouth exam: normal dental/mouth exam - Pulmonary Pulmonary: no respiratory distress - Cardiovascular Cardiovascular: regular rate and rhythym - ASA Status ASA Status: II ANE Anesthesia Plan Anesthesia Plan: GA w LMA Regional Anesthesia: single shot NB, adductor canal FNB, popliteal SNB
--- NOTE | 2018-03-19 12:08 | SOAPPROG ---
[facility] Progress Note Assessment/Plan: Assessment: Left sol fx Plan: plan orif today swelling acceptable redness on right side is resolved 03/18/18 12:42 03/19/18 12:07 Subjective: pain in left ankle Objective: Vital Signs Temp Pulse Resp BP Pulse Ox 36.9 C 88 16 136/83 H 94 03/19/18 11:37 03/19/18 12:04 03/19/18 12:04 03/19/18 12:04 03/19/18 12:04 Laboratory Results 03/19/18 04:36 03/19/18 04:36 03/18/18 03/19/18 03/20/18 05:59 05:59 05:59 Intake Total 725 Output Total 275 300 Balance 450 -300 swelling acceptable ICD10 Worksheet Patient Problems: Problems Problem Status Onset Bipolar 1 disorder Acute Closed left ankle fracture Acute Fall from balcony Acute Rotator Cuff Repair Active Bipolar disorder Acute Dottie Acute Pneumonia Acute
[2018-03-19] MEDS ORDERED: ceFAZolin 2 GM/DEXTROSE 100 ML IV ONE (12:15)
[2018-03-19] MEDS ORDERED: PROPOFOL/EMULSION 500 MG/50 ML BOTTLE IV ONE (12:33)
[2018-03-19] MEDS ORDERED: fentaNYL 100 MCG/2 ML INJ ONE (12:53)
[2018-03-19] MEDS ORDERED: MAGNESIUM HYDROXIDE 30 ML UDCUP PO PRN (13:48)
[2018-03-19] MEDS ORDERED: POLYETHYLENE GLYCOL 3350 17 GM PKT PO PRN (13:48)
[2018-03-19] MEDS ORDERED: LACTULOSE 20 GM/30 ML UDCUP PO PRN (13:48)
[2018-03-19] MEDS ORDERED: BISACODYL 10 MG SUPP PR PRN (13:48)
--- NOTE | 2018-03-19 15:36 | POSTOPPROG ---
Post Op Note Date of Operation: 03/19/18 Surgeon: Ken De Paz Teachers Aide: Aminta Anesthesiologist: Bonny Anesthesia: GET(General Endotracheal) Pre-op Diagnosis: L sol fx Post-op Diagnosis: same Indication: above Procedure: orif Francisca horton Inf/Abcess present in the surg proc area at time of surgery?: No EBL: 50-100
--- NOTE | 2018-03-19 15:49 | POSTANESTH ---
Post Anesthetic Evaluation Cardiovascular Status: Normal, Stable Respiratory Status: Requires Airway Assist Level of Consciousness/Mental Status: Moderately Sleepy Pain Control: Adequate, Prn Tx Ordered Nausea/Vomiting Control: Adequate, Prn Tx Ordered Complications Possibly Related to Anesthesia: None Noted
--- NOTE | 2018-03-19 16:08 | GOP ---
DATE OF OPERATION: 03/19/2018 SURGEON: Ken De Paz MD GOVERNOR ASSEMBLER: Vinnie Lemos SA ANESTHESIA: General, popliteal and saphenous block for postop pain control. PREOPERATIVE DIAGNOSIS: 1. Left pilon fracture. 2. Left lateral malleolus fracture. 3. Left medial malleolus fracture. POSTOPERATIVE DIAGNOSIS: 1. Left pilon fracture. 2. Left lateral malleolus fracture. 3. Left medial malleolus fracture. PROCEDURE PERFORMED: 1. Open reduction, internal fixation, left pilon fracture. 2. Open reduction, internal fixation, fibular fracture. 3. Open reduction, internal fixation, left medial malleolus fracture. FINDINGS: SPECIMENS: None. ESTIMATED BLOOD LOSS: 50 cc. INDICATIONS: A 63-year-old male who fell from height. He sustained this fracture. We discussed ris ks and benefits of operative measures, including arthritis, nonunion, malunion, continued pain, parti cular difficulty with comminution of the fibula and problems there, loose hardware, hardware removal, wound complications, nerve injury. He elected to proceed. Informed consent obtained. All question s answered. DESCRIPTION OF PROCEDURE: He was marked preoperatively. He was taken to the operative suite, steril jason prepped and draped in the usual fashion. Time-out was performed verifying the patient, side, sit e, location with agreement of the team. Esmarch was utilized. Tourniquet inflated. Tourniquet time was 120 minutes. The incision was begun with an anterior medial approach to the ankle over the medial side of the tibi yvonne anterior and swept this lateral exposing the entire front of the tibial plafond. He had a media l malleolus piece, which was fractured and a large anterior lateral plafond piece, which I worked thr ough and found the area of comminution on the CT scan. I debrided this. I was able to get 1 articul ar fragment back into place and we then placed this main fragment back over this, imaging this into p osition. I made an incision over the fibula and exposed this. This was highly comminuted and crushe d, but I had mobilized this. I then stabilized the main tibial fragment with clamps and K-wires, sebastián ected the plate, placed cortical screws in the plate first to decompress across the fracture site and bring the fracture to bone. I then placed locking screws for distal fixation. I pinned the medial malleolus in place and visualized reduction directly. Through a separate stab incision, I then place d two 4-0 cannulated screws after drilling these, and these held the fracture in compression and redu ction. The attention was turned to the lateral malleolus. This was high comminuted. I was able to get the fragments back provisionally and pinned these. There was still some area of comminution, but I felt that restored the joint surface and the rotation. I then placed a distal fibular locking plate on th is, bring this bone proximally, placing locking screws distally, and then placing independent cortica l screws in the more anterior fragment to achieve fixation of this as well. I then placed some of e loose bone back in this for bone graft. Irrigated, took final x-rays showing good fracture reduction, good hardware placement and was irrigat ed, and closed with #1 Vicryl, 0 Vicryl, 2-0 Vicryl, 3-0 nylon, placed in a sterile dressing and spli nt, and taken to PACU in stable condition. COMPLICATIONS: None. DRAINS: None. CONDITION: Stable. /[id number]/MODL
[2018-03-19] MEDS ORDERED: NALOXONE HCL 0.4 MG/ML INJ ONE (17:52)
[2018-03-19] MEDS: NALOXONE HCL 0.4 MG/ML INJ IVP PRN ×5 (17:58→18:22)
[2018-03-19] MEDS: DIVALPROEX ER 500 MG TAB PO SCH ×2 (22:25)
[2018-03-19] MEDS: NS 1,000 ML IV SCH (22:26)
[2018-03-19] MEDS: SENNOSIDES/DOCUSATE SODIUM TAB PO SCH (22:26)
[2018-03-20] MEDS: oxyCODONE IR 5 MG TAB PO PRN ×3 (05:54→18:35)
[2018-03-20] MEDS: clonazePAM 0.5 MG TAB PO SCH (07:43)
[2018-03-20] MEDS: FAMOTIDINE 20 MG TAB PO SCH ×2 (07:43→20:24)
[2018-03-20] MEDS: DIVALPROEX ER 500 MG TAB PO SCH ×2 (07:44→16:14)
[2018-03-20] MEDS: ACETAMINOPHEN 325 MG TAB PO PRN ×2 (07:44→18:34)
[2018-03-20] MEDS: SENNOSIDES/DOCUSATE SODIUM TAB PO SCH ×2 (07:45→20:25)
[2018-03-20] MEDS: NS 1,000 ML IV SCH (09:13)
--- NOTE | 2018-03-20 11:20 | SOAPPROG ---
SOAP Progress Note Assessment/Plan: Assessment: Left sol fx s/p orif 03/19 Plan: nwb LLE minimize activity elevate and ice pain control lovenox while in house for dvt prophalaxis then can do ASA 325 mg once leaves hospital for DVT prophalxsis f/u with me in 2 weeks Subjective: somulent minimal pain Objective: Vital Signs Temp Pulse Resp BP Pulse Ox 36.8 C 114 H 19 152/93 H 90 L 03/20/18 07:51 03/20/18 07:51 03/20/18 07:51 03/20/18 07:51 03/20/18 09:42 Laboratory Results 03/20/18 04:36 03/20/18 04:36 03/19/18 03/20/18 03/21/18 05:59 05:59 05:59 Intake Total 725 1680 Output Total 275 1560 Balance 450 120 splint with mild drainage intact silt in toes can flex and extend toes ICD10 Worksheet Patient Problems: Problems Problem Status Onset Bipolar 1 disorder Acute Closed left ankle fracture Acute Fall from balcony Acute Rotator Cuff Repair Active Bipolar disorder Acute Dottie Acute Pneumonia Acute
--- NOTE | 2018-03-20 13:15 | HOSPPROG ---
Hospitalist Progress Note Assessment/Plan: 63yo M with bipolar disorder presents with fall from [facility] with left tib/fib fracture. #Left hand weakness #Acute encephalopathy #Left tib/fib and malleolar fracture: Demonstrated on CT. Traumatic after fall. - s/p ORIF on 03/19 - Pain control - Elevate, ice #RLE erythema: Almost resolved, likely irritation from fall and less likely cellulitis. - No abx for now #Bipolar d/o: He has been very somnolent. I am concerned that he is not on proper dosing of his anti-psychotics and mood stabilizers - Discuss with pharmacy for appropriate dosing. For now will switch zyprexa from TID to QHS. VTE ppx: holding LMWH for surgery Code: full Plan: -I do not suspect the patient is having an acute stroke as his left sided weakness is intermittent. A review of his records shows that he has been intermittently confused prior to the hospitalization. Will still obtain a CT Head. If negative, would pursue MRI -Zyprexa was just decreased to once daily dosing from TID. Will see if this change helps with the encephalopathy -Check UA -OT is reporting Left hand pain and have requested a XR. On my exam he does not have any obvious deformity nor does he move he c/o pain when palpated. Per their request, I will obtain an XR. -NWB LLE -NPO until speech can see -Lovenox -cont inpatient Subjective: no cp or sob. no n/v. he is confused. able to follow commands intermittenly Objective: Vital Signs Temp Pulse Resp BP Pulse Ox 36.3 C 94 18 129/84 H 89 L 03/20/18 12:00 03/20/18 12:00 03/20/18 12:00 03/20/18 12:00 03/20/18 12:00 Laboratory Results 03/20/18 04:36 03/20/18 04:36 03/19/18 03/20/18 03/21/18 05:59 05:59 05:59 Intake Total 725 1680 Output Total 275 1560 Balance 450 120 - Physical Exam Constitutional: no apparent distress Eyes: PERRL Ears, Nose, Mouth, Throat: moist mucous membranes Cardiovascular: regular rate and rhythym Respiratory: no respiratory distress, no rales or rhonchi, clear to auscultation Gastrointestinal: normoactive bowel sounds, soft, non-tender abdomen Skin: warm Musculoskeletal: generalized weakness Neurologic: No AAOx3 Psychiatric: encephalopathic Lymph, Heme, Immunologic: No petechiae ICD10 Worksheet Patient Problems: Problems Problem Status Onset Bipolar 1 disorder Acute Closed left ankle fracture Acute Fall from balcony Acute Rotator Cuff Repair Active Bipolar disorder Acute Dottie Acute Pneumonia Acute
--- NOTE | 2018-03-20 15:39 | ASMTCMCOM ---
CM Note CM Note Notes: PT/OT rec SNF. Pt confused, head CT today and meds adjusted. Attempted to speak with pt about SNF, he is sleeping deeply, unarousable and may not be able to participate due to confusion. CM to follow up with pt in the morning. several SNF referrals sent in [employer] and several SNFs interested, need to complete on-site, [facility] SN[facility] accepts pt. CM to follow. Date Signed: 03/20/2018 03:34 PM Electronically Signed By:JUANY Hill
[2018-03-20] MEDS: OLANZapine DISINTEGR 10 MG TAB PO SCH (20:25)
[2018-03-21] MEDS: ACETAMINOPHEN 325 MG TAB PO PRN ×2 (07:54→17:55)
[2018-03-21] MEDS: SENNOSIDES/DOCUSATE SODIUM TAB PO SCH ×2 (07:55→20:58)
[2018-03-21] MEDS: FAMOTIDINE 20 MG TAB PO SCH ×2 (07:55→20:58)
[2018-03-21] MEDS: oxyCODONE IR 5 MG TAB PO PRN ×3 (07:56→17:55)
--- NOTE | 2018-03-21 08:16 | SOAPPROG ---
SOAP Progress Note Assessment/Plan: Assessment: Left sol fx s/p orif 03/19 Plan: nwb LLE minimize activity elevate and ice pain control lovenox while in house for dvt prophalaxis then can do ASA 325 mg once leaves hospital for DVT prophalxsis stable for discharge from orthopedic perspective f/u with me in 2 weeks 03/21/18 08:15 Subjective: min pain in ankle Objective: Vital Signs Temp Pulse Resp BP Pulse Ox 37 C 92 16 145/90 H 95 03/21/18 07:15 03/21/18 07:15 03/21/18 07:15 03/21/18 07:15 03/21/18 07:15 Laboratory Results 03/20/18 04:36 03/20/18 04:36 03/20/18 03/21/18 03/22/18 05:59 05:59 05:59 Intake Total 1680 100 Output Total 1560 1450 800 Balance 120 -1350 -800 can wiggle toes splint intact ICD10 Worksheet Patient Problems: Problems Problem Status Onset Bipolar 1 disorder Acute Closed left ankle fracture Acute Fall from balcony Acute Rotator Cuff Repair Active Bipolar disorder Acute Dottie Acute Pneumonia Acute
[2018-03-21] MEDS: clonazePAM 0.5 MG TAB PO PRN ×3 (08:59→19:37)
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
--- NOTE | 2018-03-21 11:43 | ASMTCMCOM ---
CM Note CM Note Notes: [facility] level II hydrate thickener operator September will assess pt this evening. Pt verbalizes he is amenable to SNF d/c, wants to stay in [place]. Sp with [facility] Salazar visits with pt today for assessment. Any SNF will need to see what [facility] level II says. Pt not appropriate for [facility] or [facility] since he will have no d/c plan. Gianna with [facility] reports they are at level II cap and cannot consider pt. Pt will need assist obtaining belongings if evicted while in hospital, reports he has no one to help. Date Signed: 03/21/2018 11:42 AM Electronically Signed By:JUANY Hill
--- NOTE | 2018-03-21 14:06 | HOSPPROG ---
Hospitalist Progress Note Assessment/Plan: 63yo M with bipolar disorder presents with fall from [employer] with left tib/fib fracture. Left hand weakness- improved unable to complete MRI- no need given resolution of sx Acute encephalopathy: improving suspect med related Left tib/fib and malleolar fracture: Demonstrated on CT. Traumatic after fall. - s/p ORIF on 03/19 - Pain control - Elevate, ice bipolar: some ? as to exact med doses restart depakote in AM klonopin is prn, for now continue HS zyprexa- his dose may be TID re-eval as encephalopathy clears RLE erythema: Almost resolved, likely irritation from fall and less likely cellulitis. - No abx for now Code: full Subjective: per nursing, more alert today. conversant. images reviewed/interp by me Objective: Vital Signs Temp Pulse Resp BP Pulse Ox 37 C 98 16 137/94 H 95 03/21/18 12:00 03/21/18 12:00 03/21/18 12:00 03/21/18 12:00 03/21/18 12:00 Laboratory Results 03/20/18 04:36 03/20/18 04:36 03/20/18 03/21/18 03/22/18 05:59 05:59 05:59 Intake Total 1680 100 Output Total 1560 1450 800 Balance 120 -1350 -800 - Physical Exam Constitutional: no apparent distress, appears nourished, other (somnolent but arousable) Eyes: PERRL, anicteric sclera Ears, Nose, Mouth, Throat: moist mucous membranes, hearing normal Cardiovascular: regular rate and rhythym, no murmur, rub, or gallop Respiratory: no respiratory distress, no rales or rhonchi Gastrointestinal: normoactive bowel sounds, soft, non-tender abdomen Genitourinary: no bladder fullness, No patel in urethra Skin: warm, normal color Musculoskeletal: other (toes NV intact) Neurologic: other (no L sided weakness, facial droop or sluured speech) Psychiatric: interacting appropriately, not anxious ICD10 Worksheet Patient Problems: Problems Problem Status Onset Bipolar 1 disorder Acute Closed left ankle fracture Acute Fall from [employer] Acute Rotator Cuff Repair Active Bipolar disorder Acute Dottie Acute Pneumonia Acute
[2018-03-21] MEDS: ENOXAPARIN 40 MG/0.4 ML SYR SC SCH (17:52)
[2018-03-21] MEDS: OLANZapine DISINTEGR 10 MG TAB PO SCH (20:58)
[2018-03-22 07:47] LABS: PLATELET COUNT 230 10^3/uL (150-400)
[2018-03-22] MEDS: FAMOTIDINE 20 MG TAB PO SCH ×2 (09:16→21:56)
[2018-03-22] MEDS: ACETAMINOPHEN 325 MG TAB PO PRN (09:17)
[2018-03-22] MEDS: ENOXAPARIN 40 MG/0.4 ML SYR SC SCH (09:19)
[2018-03-22] MEDS: DIVALPROEX ER 500 MG TAB PO SCH ×3 (09:19→21:56)
[2018-03-22] MEDS: SENNOSIDES/DOCUSATE SODIUM TAB PO SCH ×2 (09:21→21:56)
--- NOTE | 2018-03-22 16:01 | HOSPPROG ---
Hospitalist Progress Note Assessment/Plan: 63yo M with bipolar disorder presents with fall from [employer] with left tib/fib fracture. Left hand weakness- improved unable to complete MRI- no need given resolution of sx pain: add scheduled tylenol and prn tramadol increase oxycodone Acute encephalopathy: improving suspect med related Left tib/fib and malleolar fracture: Demonstrated on CT. Traumatic after fall. - s/p ORIF on 03/19 - Pain control - Elevate, ice bipolar: some ? as to exact med doses restart depakote in AM klonopin is prn, for now continue HS zyprexa- his dose may be TID re-eval as encephalopathy clears RLE erythema: Almost resolved, likely irritation from fall and less likely cellulitis. - No abx for now Code: full Subjective: states pain incompletely controlled. anxious about section 8 housing Objective: Vital Signs Temp Pulse Resp BP Pulse Ox 36.3 C 81 18 140/87 H 95 03/22/18 15:42 03/22/18 15:42 03/22/18 15:42 03/22/18 15:42 03/22/18 15:42 Laboratory Results 03/22/18 07:24 03/22/18 07:24 03/21/18 03/22/18 03/23/18 05:59 05:59 05:59 Intake Total 100 150 Output Total 1450 1500 100 Balance -1350 -1350 -100 - Physical Exam Constitutional: no apparent distress, appears nourished, not in pain Eyes: PERRL, anicteric sclera Ears, Nose, Mouth, Throat: moist mucous membranes, hearing normal Cardiovascular: regular rate and rhythym, no murmur, rub, or gallop Respiratory: no respiratory distress, no rales or rhonchi Gastrointestinal: normoactive bowel sounds, soft, non-tender abdomen Genitourinary: no bladder fullness Skin: warm, normal color Musculoskeletal: full muscle strength Neurologic: AAOx3 ICD10 Worksheet Patient Problems: Problems Problem Status Onset Bipolar 1 disorder Acute Closed left ankle fracture Acute Fall from [employer] Acute Rotator Cuff Repair Active Bipolar disorder Acute Dottie Acute Pneumonia Acute
[2018-03-22] MEDS: oxyCODONE IR 5 MG TAB PO PRN ×2 (16:21→22:01)
--- NOTE | 2018-03-22 16:51 | ASMTCMCOM ---
CM Note CM Note Notes: Voicemails left for Joy with Jia MADERA at [facility] to see if they can help if pt evicted while in hospital. Also left voicemail for wing to ask [facility] be notified if pt belongings are in jeopardy. Joy responded with this email: Frank I missed your call! I am actually flying out today and forgot to set my voicemail! So frank wanted to follow up with you, from your voicemail, about R[employer]G on [address]. I did try to speak with him yesterday, but he was totally zonked out and I could not get him awake enough to have a conversation. I asked some of the other CMs Is he or will he be cognitive/physically able enough that he could potentially grab some of his things? In prior situations, we somehow have always gotten or found family to assist. Another suggestion was to see if the SNF that he will be going to would be willing to assist. Last suggestion is to see if [facility] [phone] would be willing or able to assist. Pascale [place]nsworth was going to check with a housing CM at [facility] to see if they have any suggestions. I will let you know when I hear from her! This is a hard situation, feel bad for him! Hope this helps some. I will also let you know if I can come up with any other ideas. Mirna Tobar is pt [facility] worker [phone] pt is approved for HCBS. PASRR level II stock associate September met with pt yesterday and per Jigar Rodríguez pt did not want to participate in eval. Pt PASRR for rehab approved, received from Jigar Rodríguez, is fax-attached in [employer] and sent to [facility] for review. This PASRR documents pt as potentially very challenging so hopefully some of the SNFs which have already accepted pt such as and can still take him. By close of business no update from BM or about if they can accept pt. D/c plan of care: SNF, which is TBD Date Signed: 03/22/2018 04:50 PM Electronically Signed By:JUANY Hill
[2018-03-22] MEDS: OLANZapine DISINTEGR 10 MG TAB PO SCH (21:56)
[2018-03-22] MEDS: ACETAMINOPHEN 500 MG TAB PO SCH (21:57)
[2018-03-23] MEDS: oxyCODONE IR 5 MG TAB PO PRN ×4 (05:49→21:18)
[2018-03-23] MEDS: ACETAMINOPHEN 500 MG TAB PO SCH ×3 (05:50→17:01)
[2018-03-23] MEDS: POLYETHYLENE GLYCOL 3350 17 GM PKT PO SCH (08:46)
[2018-03-23] MEDS: FAMOTIDINE 20 MG TAB PO SCH ×2 (08:46→21:10)
[2018-03-23] MEDS: ENOXAPARIN 40 MG/0.4 ML SYR SC SCH (08:48)
[2018-03-23] MEDS: traMADol 50 MG TAB PO PRN (08:50)
[2018-03-23] MEDS: SENNOSIDES/DOCUSATE SODIUM TAB PO SCH ×2 (08:51→21:10)
[2018-03-23] MEDS: clonazePAM 0.5 MG TAB PO PRN ×2 (08:54→21:20)
[2018-03-23] MEDS: DIVALPROEX ER 500 MG TAB PO SCH ×3 (10:31→21:09)
--- NOTE | 2018-03-23 14:06 | HOSPPROG ---
Hospitalist Progress Note Assessment/Plan: 63yo M with bipolar disorder presents with fall from [employer] with left tib/fib fracture. Left hand weakness- improved unable to complete MRI- no need given resolution of sx pain: add scheduled tylenol and prn tramadol increase oxycodone 03/23- better improved today Acute encephalopathy: improving suspect med related Left tib/fib and malleolar fracture: Demonstrated on CT. Traumatic after fall. - s/p ORIF on 03/19 - Pain control - Elevate, ice bipolar: some ? as to exact med doses restart depakote in AM klonopin is prn, for now continue HS zyprexa- his dose may be TID re-eval as encephalopathy clears 03/23: mood has been stable thinks he is on correct dose of meds RLE erythema: Almost resolved, likely irritation from fall and less likely cellulitis. - No abx for now Code: full Subjective: pain better controlled w increase in oxycodone. thinks he is on correct doses of psych meds Objective: Vital Signs Temp Pulse Resp BP Pulse Ox 36.6 C 81 17 123/74 H 96 03/23/18 08:00 03/23/18 08:00 03/23/18 08:00 03/23/18 08:00 03/23/18 08:00 Laboratory Results 03/22/18 07:24 03/22/18 07:24 03/22/18 03/23/18 03/24/18 05:59 05:59 05:59 Intake Total 150 600 200 Output Total 1500 325 200 Balance -1350 275 0 - Physical Exam Constitutional: no apparent distress, appears nourished Eyes: PERRL, anicteric sclera Ears, Nose, Mouth, Throat: moist mucous membranes, hearing normal Cardiovascular: regular rate and rhythym, no murmur, rub, or gallop Respiratory: no respiratory distress, no rales or rhonchi Gastrointestinal: normoactive bowel sounds, soft, non-tender abdomen Genitourinary: No patel in urethra Skin: warm, normal color Musculoskeletal: full muscle strength Neurologic: AAOx3 ICD10 Worksheet Patient Problems: Problems Problem Status Onset Bipolar 1 disorder Acute Closed left ankle fracture Acute Fall from [employer] Acute Rotator Cuff Repair Active Bipolar disorder Acute Dottie Acute Pneumonia Acute
--- NOTE | 2018-03-23 14:43 | ASMTCMCOM ---
CM Note CM Note Notes: Chart reviewed. Please refer to previous note from Maxine Marcelino CM regarding specific case workers for patient. Call to Sp at [facility] regarding patient eligibility for a bed. He states he had asked administration after his on sight but had not heard back. I asked that he call us and f/u. Also spoke with Miroslava at and she is over [facility], willing to come and do on sight evaluation as well if patient unable to go to . CM to follow. Plan: To [facility] Date Signed: 03/23/2018 02:42 PM Electronically Signed By:Christin Teran RN
[2018-03-23] MEDS: OLANZapine DISINTEGR 10 MG TAB PO SCH (21:09)
[2018-03-24] MEDS: ACETAMINOPHEN 500 MG TAB PO SCH ×3 (05:25→21:52)
[2018-03-24] MEDS: traMADol 50 MG TAB PO PRN ×2 (06:18→15:46)
[2018-03-24] MEDS: DIVALPROEX ER 500 MG TAB PO SCH ×3 (09:01→21:52)
[2018-03-24] MEDS: ENOXAPARIN 40 MG/0.4 ML SYR SC SCH (09:01)
[2018-03-24] MEDS: FAMOTIDINE 20 MG TAB PO SCH ×2 (09:02→19:34)
[2018-03-24] MEDS: SENNOSIDES/DOCUSATE SODIUM TAB PO SCH ×2 (09:04→19:34)
[2018-03-24] MEDS: POLYETHYLENE GLYCOL 3350 17 GM PKT PO SCH (09:04)
[2018-03-24] MEDS: oxyCODONE IR 5 MG TAB PO PRN ×3 (13:25→23:24)
--- NOTE | 2018-03-24 14:00 | HOSPPROG ---
Hospitalist Progress Note Assessment/Plan: 63yo M with bipolar disorder presents with fall from [employer] with left tib/fib fracture. Left hand weakness- improved unable to complete MRI- no need given resolution of sx pain: add scheduled tylenol and prn tramadol increase oxycodone 03/23- better improved today Acute encephalopathy: improving suspect med related Left tib/fib and malleolar fracture: Demonstrated on CT. Traumatic after fall. - s/p ORIF on 03/19 - Pain control - Elevate, ice bipolar: some ? as to exact med doses restart depakote in AM klonopin is prn, for now continue HS zyprexa- his dose may be TID re-eval as encephalopathy clears 03/23: mood has been stable thinks he is on correct dose of meds RLE erythema: Almost resolved, likely irritation from fall and less likely cellulitis. - No abx for now Code: full Subjective: pain reasonably well controlled Objective: Vital Signs Temp Pulse Resp BP Pulse Ox 36.8 C 71 16 111/74 89 L 03/24/18 08:00 03/24/18 08:00 03/24/18 08:00 03/24/18 08:00 03/24/18 08:00 Laboratory Results 03/22/18 07:24 03/22/18 07:24 03/23/18 03/24/18 03/25/18 05:59 05:59 05:59 Intake Total 600 200 Output Total 325 700 Balance 275 -500 - Physical Exam Constitutional: no apparent distress, appears nourished Eyes: PERRL, anicteric sclera Ears, Nose, Mouth, Throat: moist mucous membranes, hearing normal Cardiovascular: regular rate and rhythym, no murmur, rub, or gallop Respiratory: no respiratory distress, no rales or rhonchi Gastrointestinal: normoactive bowel sounds, soft, non-tender abdomen Genitourinary: no bladder fullness, No patel in urethra Skin: warm, normal color Musculoskeletal: full muscle strength Neurologic: AAOx3 ICD10 Worksheet Patient Problems: Problems Problem Status Onset Bipolar 1 disorder Acute Closed left ankle fracture Acute Fall from balcony Acute Rotator Cuff Repair Active Bipolar disorder Acute Dottie Acute Pneumonia Acute
--- NOTE | 2018-03-24 15:52 | ASMTCMCOM ---
CM Note CM Note Notes: Patient reports that he has no family to assist him, they are . Patient very worried that his landlords have discontinued his lease, he has been month to month for the past 6mos. Landlords: Devorah and Hung Dooley [phone] have started eviction process/ CM 03/21/18 Note. Left a message for Jia Vigil, his Accessibility Lift Technician at [facility] to see if she might have ideas on housing after rehab. Patient prefers to stay in [place], [place] Waiting for replies from [place] and [place]. Will ask Bridgette Hernandez to assess. Date Signed: 03/24/2018 03:52 PM Electronically Signed By:Helen Donnelly LCSW
--- NOTE | 2018-03-24 16:14 | ASMTCMCOM ---
CM Note CM Note Notes: We received a message from [facility] that they are not interested in admitting patient. At this time we have no rehabs with LTC in [place] interested in admitted patient. Bridgette Baez, charles assess Sunday. Date Signed: 03/24/2018 04:14 PM Electronically Signed By:Helen Donnelly LCSW
[2018-03-24] MEDS: OLANZapine DISINTEGR 10 MG TAB PO SCH (19:34)
[2018-03-25] MEDS: oxyCODONE IR 5 MG TAB PO PRN ×3 (05:37→19:40)
[2018-03-25] MEDS: ACETAMINOPHEN 500 MG TAB PO SCH ×3 (05:37→21:37)
--- NOTE | 2018-03-25 08:56 | HOSPPROG ---
Hospitalist Progress Note Assessment/Plan: #Left tib/fin/malleolar fx: s/p ORIF 03/19. NWB, PT/OT #Acute pain: controlled #Acute toxic encephalopathy: med-related #Bipolar d/o: very agitated today. Increase Depakote, Zyprexa slowly) (2500mg qhs, Zyprexa 10mg TID are home dosages) #Left hand weakness #RUE erythema #Vit D deficiency: ergo weekly #Social issues: has SW with [facility] #Disp: cont inpatient admission for PT/OT. Subjective: very stressed. [place] he was going to be evicted from home Objective: Vital Signs Temp Pulse Resp BP Pulse Ox 36.3 C 62 16 112/71 90 L 03/25/18 07:43 03/25/18 07:43 03/25/18 07:43 03/25/18 07:43 03/25/18 07:43 Laboratory Results 03/22/18 07:24 03/22/18 07:24 03/24/18 03/25/18 03/26/18 05:59 05:59 05:59 Intake Total 200 1200 Output Total 700 150 Balance -500 1050 - Time Spent With Patient Time Spent with Patient: greater than 35 minutes Time Spent with Patient: Greater than 35 minutes spent on this patients care, greater than 50% of time spent counseling, educating, and coordinating care regarding the above mentioned plan. - Physical Exam Constitutional: no apparent distress Eyes: PERRL Ears, Nose, Mouth, Throat: moist mucous membranes Cardiovascular: regular rate and rhythym Respiratory: no respiratory distress Gastrointestinal: normoactive bowel sounds Genitourinary: no bladder fullness Musculoskeletal: full muscle strength Psychiatric: anxious ICD10 Worksheet Patient Problems: Problems Problem Status Onset Bipolar 1 disorder Acute Closed left ankle fracture Acute Fall from balcony Acute Rotator Cuff Repair Active Bipolar disorder Acute Dottie Acute Pneumonia Acute
[2018-03-25] MEDS: POLYETHYLENE GLYCOL 3350 17 GM PKT PO SCH (09:05)
[2018-03-25] MEDS: SENNOSIDES/DOCUSATE SODIUM TAB PO SCH ×2 (09:05→21:37)
[2018-03-25] MEDS: ENOXAPARIN 40 MG/0.4 ML SYR SC SCH (09:06)
[2018-03-25] MEDS: DIVALPROEX ER 500 MG TAB PO SCH ×2 (09:06→21:37)
[2018-03-25] MEDS: FAMOTIDINE 20 MG TAB PO SCH ×2 (09:06→21:37)
[2018-03-25] MEDS: clonazePAM 0.5 MG TAB PO PRN (11:02)
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
--- NOTE | 2018-03-25 16:20 | ASMTCMCOM ---
CM Note CM Note Notes: LEANDER signed by patient and sent to [facility]. Per Jia Vigil, his deposition operator at [facility], they will be able to speak with us once this is received. I also spoke with Mirna Tobar, patient's [facility] deposition operator and explained probable d/c plan - to [facility] tomorrow - but told her we would call her tomorrow w [facility] so that she can follow up with patient there. I anticipate that [facility] may need to assess him for custodial care at some point if he loses his Section 8 voucher. Pricila, PT, reports that, per wing, patient has until mid-March to gather his belongings from his apartment, otherwise they will be put on the street. Date Signed: 03/25/2018 04:19 PM Electronically Signed By:Karma Roth RN
[2018-03-25] MEDS: OLANZapine DISINTEGR 10 MG TAB PO SCH (21:37)
[2018-03-25] MEDS: traMADol 50 MG TAB PO PRN (21:39)
[2018-03-26] MEDS: ACETAMINOPHEN 500 MG TAB PO SCH ×3 (05:42→22:58)
[2018-03-26] MEDS: oxyCODONE IR 5 MG TAB PO PRN ×2 (05:43→16:57)
[2018-03-26] MEDS: SENNOSIDES/DOCUSATE SODIUM TAB PO SCH ×2 (08:19→23:32)
[2018-03-26] MEDS: FAMOTIDINE 20 MG TAB PO SCH ×2 (08:20→22:58)
[2018-03-26] MEDS: OLANZapine DISINTEGR 10 MG TAB PO SCH ×2 (08:20→22:58)
[2018-03-26] MEDS: DIVALPROEX ER 500 MG TAB PO SCH ×2 (08:21→22:58)
[2018-03-26] MEDS: traMADol 50 MG TAB PO PRN (08:24)
[2018-03-26] MEDS: clonazePAM 0.5 MG TAB PO PRN ×2 (08:25→22:58)
[2018-03-26] MEDS: POLYETHYLENE GLYCOL 3350 17 GM PKT PO SCH (08:26)
[2018-03-26] MEDS: ENOXAPARIN 40 MG/0.4 ML SYR SC SCH (08:26)
[2018-03-26] MEDS ORDERED: ERGOCALCIFEROL 50,000 I.UNIT CAP PO SCH (09:00)
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
--- NOTE | 2018-03-26 14:33 | HOSPPROG ---
Hospitalist Progress Note Assessment/Plan: #Left tib/fin/malleolar fx: s/p ORIF 03/19. NWB, PT/OT. #Acute pain: controlled #Acute toxic encephalopathy: med-related #Bipolar d/o: very agitated today. Increase Depakote, Zyprexa slowly) (2500mg qhs, Zyprexa 10mg TID are home dosages) #Left hand weakness #RUE erythema #Vit D deficiency: ergo weekly #Social issues: Concern is he will lose his belongings, because being evicted. CM working with his SW at [facility]. Referral to [facility] #Disp: cont inpatient admission for PT/OT. Subjective: pain controlled. Less agitated today Objective: Vital Signs Temp Pulse Resp BP Pulse Ox 36.5 C 82 22 H 104/80 92 03/26/18 08:30 03/26/18 08:30 03/26/18 08:30 03/26/18 08:30 03/26/18 08:30 Laboratory Results 03/22/18 07:24 03/22/18 07:24 03/25/18 03/26/18 03/27/18 05:59 05:59 05:59 Intake Total 1200 Output Total 150 200 Balance 1050 -200 - Time Spent With Patient Time Spent with Patient: greater than 25 minutes Time Spent with Patient: Greater than 25 minutes spent on this patients care, greater than 50% of time spent counseling, educating, and coordinating care regarding the above mentioned plan. - Physical Exam Constitutional: no apparent distress Eyes: PERRL Ears, Nose, Mouth, Throat: moist mucous membranes Respiratory: no respiratory distress Gastrointestinal: normoactive bowel sounds Genitourinary: no bladder fullness Skin: warm Musculoskeletal: other (left leg casted) Neurologic: CN II-XII Intact Psychiatric: poor insight, poor judgement, poor memory ICD10 Worksheet Patient Problems: Problems Problem Status Onset Bipolar 1 disorder Acute Closed left ankle fracture Acute Fall from balcony Acute Rotator Cuff Repair Active Bipolar disorder Acute Dottie Acute Pneumonia Acute
--- NOTE | 2018-03-26 17:12 | ASMTCMCOM ---
CM Note CM Note Notes: Brad did come to see patient today ( fire fighting equipment specialist) and he got the releases he needs to start working on getting some funds to help patient secure and move some of his things before the eviction is final. Brad's number is [phone]. Was unable to reconnect with Miroslava at [facility]. CM to follow up tomorrow. Date Signed: 03/26/2018 05:12 PM Electronically Signed By:Renuka Morejon LCSW
[2018-03-27] MEDS: POLYETHYLENE GLYCOL 3350 17 GM PKT PO SCH (09:21)
[2018-03-27] MEDS: DIVALPROEX ER 500 MG TAB PO SCH ×2 (09:21→21:47)
[2018-03-27] MEDS: SENNOSIDES/DOCUSATE SODIUM TAB PO SCH ×2 (09:21→21:43)
[2018-03-27] MEDS: OLANZapine DISINTEGR 10 MG TAB PO SCH ×3 (09:21→21:43)
[2018-03-27] MEDS: ENOXAPARIN 40 MG/0.4 ML SYR SC SCH (09:22)
[2018-03-27] MEDS: FAMOTIDINE 20 MG TAB PO SCH ×2 (09:22→21:42)
[2018-03-27] MEDS: oxyCODONE IR 5 MG TAB PO PRN ×3 (09:26→21:40)
[2018-03-27] MEDS: ACETAMINOPHEN 500 MG TAB PO SCH ×3 (09:26→21:42)
[2018-03-27] MEDS: clonazePAM 0.5 MG TAB PO PRN (14:49)
--- NOTE | 2018-03-27 16:10 | ASMTCMCOM ---
CM Note CM Note Notes: Miroslava with [facility] reports [facility] needs to decline pt because they are too close to their Level II PASRR cap. Jocelyne with [facility] completed on-site assessment. Cm to follow. Date Signed: 03/27/2018 04:09 PM Electronically Signed By:JUANY Hill
--- NOTE | 2018-03-27 17:20 | HOSPPROG ---
Hospitalist Progress Note Assessment/Plan: #Left tib/fin/malleolar fx: s/p ORIF 03/19. NWB, PT/OT. #Acute pain: controlled with oxycodone #Acute toxic encephalopathy: med-related #Bipolar d/o: very agitated today. resume home dose Depakote, Zyprexa #Left hand weakness #RUE erythema: resolved #Vit D deficiency: ergo weekly #Social issues: Concern is he will lose his belongings, because being evicted. CM working with his SW at [facility]. Referral to [facility] #Disp: cont inpatient admission for PT/OT. Subjective: "want to get out of here" Objective: Vital Signs Temp Pulse Resp BP Pulse Ox 36.9 C 88 12 134/86 H 90 L 03/27/18 16:00 03/27/18 16:00 03/27/18 16:00 03/27/18 16:00 03/27/18 16:00 Laboratory Results 03/22/18 07:24 03/22/18 07:24 03/26/18 03/27/18 03/28/18 05:59 05:59 05:59 Intake Total 400 Output Total 200 Balance -200 400 - Time Spent With Patient Time Spent with Patient: greater than 25 minutes Time Spent with Patient: Greater than 25 minutes spent on this patients care, greater than 50% of time spent counseling, educating, and coordinating care regarding the above mentioned plan. - Physical Exam Constitutional: no apparent distress Eyes: PERRL Ears, Nose, Mouth, Throat: moist mucous membranes Cardiovascular: regular rate and rhythym Respiratory: no respiratory distress Gastrointestinal: normoactive bowel sounds Genitourinary: no bladder fullness Skin: warm Musculoskeletal: other (left foot casted) Psychiatric: anxious, agitated, poor insight, poor judgement, poor memory ICD10 Worksheet Patient Problems: Problems Problem Status Onset Bipolar 1 disorder Acute Closed left ankle fracture Acute Fall from balcony Acute Rotator Cuff Repair Active Bipolar disorder Acute Dottei Acute Pneumonia Acute
[2018-03-27] MEDS ORDERED: DIVALPROEX ER 500 MG TAB PO SCH (21:00)
[2018-03-28] MEDS: traMADol 50 MG TAB PO PRN ×2 (05:45→12:12)
[2018-03-28] MEDS: ACETAMINOPHEN 500 MG TAB PO SCH ×2 (05:46→14:53)
[2018-03-28 05:50] VITALS: BP 117/96
[2018-03-28] MEDS: OLANZapine DISINTEGR 10 MG TAB PO SCH (07:36)
[2018-03-28] MEDS: FAMOTIDINE 20 MG TAB PO SCH (07:36)
[2018-03-28] MEDS: DIVALPROEX ER 500 MG TAB PO SCH (07:37)
[2018-03-28] MEDS: clonazePAM 0.5 MG TAB PO PRN (07:37)
[2018-03-28] MEDS ORDERED: HALOPERIDOL 1 MG TAB PO PRN (10:06)
[2018-03-28] MEDS ORDERED: HALOPERIDOL LACT 5 MG/ML INJ IVP PRN ×2 (10:06→10:29)
[2018-03-28] MEDS: ENOXAPARIN 40 MG/0.4 ML SYR SC SCH (10:11)
[2018-03-28] MEDS: SENNOSIDES/DOCUSATE SODIUM TAB PO SCH (10:11)
[2018-03-28] MEDS: POLYETHYLENE GLYCOL 3350 17 GM PKT PO SCH (10:11)
--- NOTE | 2018-03-28 10:21 | HOSPPROG ---
Hospitalist Progress Note Assessment/Plan: #Acute agitation: placed on detainer, at grave-risk for harm with acute fracture due inability to make informed decisions about his medical care -spoke with Dr. Danielle who agrees with Haldol. Cont psych meds at current dose. Valproic level pending #Left tib/fin/malleolar fx: s/p ORIF 03/19. NWB, PT/OT. #Acute pain: controlled with oxycodone #Acute toxic encephalopathy: med-related #Bipolar d/o: very agitated today. resume home dose Depakote, Zyprexa #Left hand weakness #RUE erythema: resolved #Vit D deficiency: ergo weekly #Social issues: Concern is he will lose his belongings, because being evicted. CM working with his SW at [facility]. Referral to [facility] #Disp: cont inpatient admission for PT/OT. Time spent on visit: 45 min bedside, d/w DR. Danielle and staff development coordinator rn Subjective: agitated, trying to leave the hospital. Aggressive with staff Objective: Vital Signs Temp Pulse Resp BP Pulse Ox 36.6 C 72 18 117/96 H 91 L 03/28/18 05:48 03/28/18 05:48 03/28/18 08:00 03/28/18 05:48 03/28/18 05:48 Laboratory Results 03/22/18 07:24 03/22/18 07:24 03/27/18 03/28/18 03/29/18 05:59 05:59 05:59 Intake Total 400 1400 Output Total 675 Balance 400 725 - Time Spent With Patient Time Spent with Patient: greater than 35 minutes Time Spent with Patient: Greater than 35 minutes spent on this patients care, greater than 50% of time spent counseling, educating, and coordinating care regarding the above mentioned plan. - Physical Exam Constitutional: uncomfortable Eyes: PERRL Ears, Nose, Mouth, Throat: moist mucous membranes Cardiovascular: regular rate and rhythym Musculoskeletal: other (left foot in splint) Neurologic: CN II-XII Intact Psychiatric: agitated, poor insight, poor judgement ICD10 Worksheet Patient Problems: Problems Problem Status Onset Rotator Cuff Repair Active Bipolar 1 disorder Acute Bipolar disorder Acute Closed left ankle fracture Acute Fall from balcony Acute Dottie Acute Pneumonia Acute
--- NOTE | 2018-03-28 10:47 | ASMTLCPROG ---
Notes Note: Notes: Received call from hospitalist, Dr. Little, requesting TLC eval on pt on med floor. Asked if pt had expressed to staff intent to want to kill himself or threaten to kill someone else. This was denied. Suggested and provided cell # for psychiatrist, Dr. Danielle for Dr. Little to consult. Shortly thereafter, social media director/CM presented to [facility] office with M1 hold she had filled out, that pt had threatened to beat the s--t out of her. Informed CM that if pt placed on M1 hold, pt would have to be moved to ICU, per [facility] policy. I met with pt briefly on 3N #[id number]. Pt voiced frustration in not being able to leave the hospital as SNF placement arrangements still pending. Pt denied to this supervisor slate splitting, intent to want to harm/kill anyone including staff. Pt denied any desire/intent to want to harm/kill self. Consulted again in person with Dr. Little who confirmed having spoken with Dr. Danielle and that she nullified the M1 hold and was placing pt on a medical detainer. She added that she will write an order for [facility] for pt. Date Signed: 03/28/2018 10:46 AM Electronically Signed By:Dick Nagy
--- NOTE | 2018-03-28 12:58 | ASMTCMCOM ---
CM Note CM Note Notes: [facility]. [facility] has expressed interest and has called with questions. Preeti at [phone], ext [phone] is the contact. Her cell number is [phone]. Preeti wanted to know if pt was decisional and what his d/c plan would be from [place]. CM responded through [employer] and by leaving a message on her cell phone that pt is decisional and would eventually need LTC or AL. Waiting for response. If no response by mid afternoon will contact again. CM to follow. D/C Plan: TBD Date Signed: 03/28/2018 12:57 PM Electronically Signed By:Archana Bowman
--- NOTE | 2018-03-28 14:20 | ASMTDCNOTE ---
Case Management Discharge Discharge Order Complete? Answers: Yes Patient to Obtain Answers: Other Notes: [facility] Medications Transportation Arranged Answers: [facility] will Pick (Date 03/28/2018 03:00 PM & Time) Case Management Transport Answers: Yes Form Complete Faxed Final Orders Answers: Yes Agency/Facility Transfer Answers: Yes Report Printed & Faxed to Receiving Agency Discharge Comments Notes: Pt is being to [facility]. 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 Jia Vigil, his CM at [facility], has been notified. Date Signed: 03/28/2018 02:20 PM Electronically Signed By:Archana Bowman
--- NOTE | 2018-03-28 14:21 | ASMTLACE ---
KAZ Length of stay for Answers: 7-13 days current admission Acuity / Level of Answers: Yes Care: Did the patient have an inpatient admission? Comorbidities - select Answers: Mild liver or renal all that apply disease Opioid dependence / Chronic pain # of Emergency department Answers: 3-4 visits in the last 6 months Social determinants Answers: Mental health diagnosis (anxiety, depression, pers onality disorders, etc.) Score: 20 Date Signed: 03/28/2018 02:20 PM Electronically Signed By:Archana Bowman
--- NOTE | 2018-03-28 15:44 | PDIAF ---
- Diagnosis Diagnosis: Fibula fracture Code Status: Full Code - Medication Management Discharge Medications: Medications to Continue on Transfer Albuterol [Proventil Inhaler HFA (*)] 2 puffs IH Q4HRS PRN #1 mdi 03/13/18 [ Last Taken Unknown] Famotidine [Pepcid 20 MG (*)] 20 mg PO BID #60 tab 03/13/18 [Last Taken 03/17/18 ] clonazePAM [klonoPIN (*)] 1 mg PO BID #60 tab 03/13/18 [Last Taken 03/17/18] oxyCODONE IR [Oxycodone Ir (*)] 10 mg PO Q6 PRN #30 tab 03/13/18 [Last Taken Unknown] Divalproex ER [Depakote ER 500 MG (*)] 2,500 mg PO HS 03/17/18 [Last Taken 03/17] OLANZapine [Olanzapine Odt] 10 mg PO TID 03/19/18 [Last Taken Unknown] Aspirin [Aspirin 325 mg (*)] 325 mg PO DAILY #30 tab 03/28/18 [Last Taken Unknown] Ergocalciferol [Vitamin D2 (*)] 50,000 i.unit PO Q7D cap 03/28/18 [Last Taken Unknown] OLANZapine DISINTEGR [ZyPREXA ZYDIS (*)] 10 mg PO TID #90 tab 03/28/18 [Last Taken Unknown] traMADol [Ultram 50 mg (*)] 50 mg PO Q6HRS PRN #0 tab 03/28/18 [Last Taken Unknown] Discharge Medications: Refer to the Discharge Home Medication list for PRN reason. - Orders Services needed: Registered Nurse, Physical Therapy, Occupational Therapy Diet Texture: Regular Texture Diet, Thin Liquids, Meds Whole w/Liquids Additional Instructions: You cannot put weight on your ankle. You must use the crutches at all times. Keep the splint in place. Call the orthopedic doctor this morning to arrange for a follow-up appointment. You should use ice, elevation throughout the day. You can take Tylenol as needed for pain. nwb LLE minimize activity elevate and ice pain control lovenox while in house for dvt prophalaxis then can do ASA 325 mg once leaves hospital for DVT prophalxsis - Labs/Radiology Other Lab Name, Date and Time: Vitamin D level in 1 month - Follow Up Care Current Providers and Referrals: Lb Dee MD [Medical Doctor] - As per Instructions Ken De Paz MD [Medical Doctor] - follow up in 10 days
--- NOTE | 2018-03-28 17:50 | GDS ---
DISCHARGE DIAGNOSES: 1. Left tibular/fibular fracture. 2. Bipolar disorder. 3. Acute pain. 4. Acute toxic encephalopathy, resolved. 5. Right upper extremity erythema. 6. Vitamin D deficiency. 7. Social issues. HISTORY OF PRESENT ILLNESS: A 63-year-old male with bipolar disorder, who presented with left ankle pain after jumping from his second-story balcony. He fell at least 10 feet. X-ray showed a left tib-fib fracture, status post ORIF on 03/19/2018, by Dr. De Paz. CONSULTATIONS: Dr. De Paz. SURGERY: ORIF left pilon fracture. ORIF fibular fracture. ORIF left medial malleolus fracture. HOSPITAL COURSE BY PROBLEM: 1. Acute left pilon/fibular/medial malleolus fracture from jumping from a 2nd story building. He is currently nonweightbearing and is to use crutches at all times and keep splints in place. He is to follow up with Dr. De Paz in 10 days. Pain has been controlled with oxycodone. ASA for ppx. 2. Acute toxic encephalopathy: This was postop, likely related to over medication with pain meds, as well as psychiatric medications. This has since resolved. 3. Bipolar disorder: Patient was recently an inpatient at [facility]. Of note, he was very difficult to treat there, per Dr. Danielle, very agitated and destructive. We will continue his Depakote at 2500 mg q.h.s., Zyprexa 10 mg t.i.d. Can add Haldol as needed. 4. Right upper extremity erythema. This has since resolved. No evidence of acute cellulitis or infection. 5. Vitamin D deficiency. Ergocalciferol weekly. Repeat level in 1 month. 6. Social issues. Concern is that he is being evicted from his apartment. Unfortunately, his mental health is prohibiting him from being able to manage this on his own. He has a social worker aide with [facility] who will continue to assist. DISPOSITION: Patient is stable for discharge to rehab. FOLLOWUP: Dr. De Paz in 10 days. INSTRUCTIONS: Nonweightbearing, elevate and ice, pain control. NEW MEDICATIONS: Aspirin 325 for DVT prophylaxis. PHYSICAL EXAMINATION: VITAL SIGNS: Today, temperature 36.6, blood pressure 117 /76, heart rate is in the 70s, respirations 16, 91% on room air. GENERAL: Agitated but no acute distress. Anxious. HEENT: PERRLA. Moist mucous membranes. CV: Regular rate and rhythm. LUNGS: Clear. MUSCULOSKELETAL: Left foot is in splint. NEURO: 2 through 12 intact. PSYCH: He is alert and he is oriented. Talking appropriately, but poor insight, poor judgment. Time spent on discharge: Greater than 45 minutes coordinating with case management. /[id number]/MODL MTDD
[2018-03-29] MEDS ORDERED: DIVALPROEX ER 500 MG TAB PO SCH (09:00)
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
== END 2018-03-28 15:15 | DRG 492 ==
LOC: EDUNIT# → F3N 06:27 → OBSVTOIN 16:59
PROVIDERS: ADMIT Student in an Organized Health Care Education/Training Program; ATTEND Student in an Organized Health Care Education/Training Program
PROC: 0QSK04Z Reposition Left Fibula with Internal Fixation Device, Open Approach (ICD-10-PCS; principal; 2018-03-19 12:15)
PROC: 0QSH04Z Reposition Left Tibia with Internal Fixation Device, Open Approach (ICD-10-PCS; principal; 2018-03-19 12:15)
DX: S82.832A Other fracture of upper and lower end of left fibula, initial encounter for closed fracture (principal); G92 Toxic encephalopathy; T43.505A Adverse effect of unspecified antipsychotics and neuroleptics, initial encounter; T40.2X5A Adverse effect of other opioids, initial encounter; S82.52XA Displaced fracture of medial malleolus of left tibia, initial encounter for closed fracture; S82.62XA Displaced fracture of lateral malleolus of left fibula, initial encounter for closed fracture; W13.0XXA Fall from, out of or through balcony, initial encounter; Y92.038 Other place in apartment as the place of occurrence of the external cause; F31.9 Bipolar disorder, unspecified; L53.9 Erythematous condition, unspecified; E55.9 Vitamin D deficiency, unspecified
CPT/HCPCS: 80307; 92610-GN; 96374; 97116-GP; 97163-GP; 97166-GO; 97530-GO; 97530-GP; 97535-GO; C1713; C1769; G0480; G8978-GP-CM; G8979-GP-CJ; G8987-GO-CM; G8988-GO-CJ; G8996-GN-CI; G8997-GN-CI; G8998-GN-CI; J0690; J1630; J1650; J2270; J2310; J2704; J2795; J3010